=== PATIENT | female | born 1945 | race Caucasian/White ===

== ENCOUNTER 2017-04-06 19:43 | Inpatient (IN) ==
--- NOTE | 2017-04-06 20:11 | Emergency Department Note ---
START Narrative - START START: Nontoxic-appearing 71-year-old female that presents for evaluation of a left wrist injury status post fall just prior to arrival. The patient was attending a football game and was walking up a set of metal bleachers when she "got dizzy and fell". She complains of only left wrist pain from this fall. She states that she is unable to perform range of motion exercises from the left wrist. She states that she has "been getting dizzy a lot lately but it has not made me fall until tonight". She states that she has seen her primary care provider regarding this. She is scheduled for a "chemical stress test" however this is pending insurance authorization. She complains of shortness of breath upon exertion as well as intermittent substernal and left sided chest pain and pressure.
[2017-04-06] MEDS ORDERED: 0.9 % Sodium Chloride 1,000 ML IVC ONE (20:29)
--- NOTE | 2017-04-06 21:02 | Emergency Department Note ---
Disposition Clinical Impression: Multiple falls, Hypokalemia Fracture of triquetrum of left wrist Qualifiers: Encounter type: initial encounter Fracture type: closed Fracture alignment: nondisplaced Qualified Code(s): S62.115A - Nondisplaced fracture of triquetrum [ cuneiform] bone, left wrist, initial encounter for closed fracture Chest pain Qualifiers: Chest pain type: unspecified Qualified Code(s): R07.9 - Chest pain, unspecified UTI (urinary tract infection) Qualifiers: Urinary tract infection type: acute cystitis Hematuria presence: without hematuria Qualified Code(s): N30.00 - Acute cystitis without hematuria Disposition: Admitted As Inpatient Condition: Fair Time of Disposition: 22:35 Fall HPI - General Chief Complaint: ED Extremity Injury, Upper Stated Complaint: left arm pain, fall Time Seen by Provider: 04/06/17 20:08 Source: patient, family Mode of arrival: ambulatory Limitations: no limitations Nursing Notes Reviewed: Yes Vital Signs Reviewed: Yes - History of Present Illness HPI Narrative: 71-year-old female history of hypothyroidism, presents after a possible mechanical fall she was exam of the [employer] and she slipped slipped and fell hitting her left hand was planted on the side of the wall she struck her head against the wall, and fell on the ground. She denies injuries elsewhere but now feels short of breath she had some intermittent dizziness, she states that she has had approximately 14 follows in the last few months and has not been seen by a physician. She was just seen by primary care physician to be evaluated for an outpatient stress test if his intermittent chest pain shortness of breath. She denies chest pain currently she had chest pain 5 out of 10 earlier today. Occurs at rest and with activity, she has taken baby aspirin, she denies neck pain chest pain or abdominal pain at this time. Pt Subjective Complaint: fall Fall From: standing Fall Witnessed: yes Place Fall Occurred: other (At [employer] game bleachers) Loss of Consciousness: unsure Prolonged Down Time?: no Symptoms Prior to Fall: none Context: tripped/slipped Location of injury: head Location of injury - extremities: Left: hand Severity: mild Severity scale (1-10): 4 Quality: aching Associated symptoms (after fall): Reports: headache, shortness of breath, lightheaded. Denies: neck pain, weakness, chest pain, abdominal pain, hematuria , unable to walk - Related Data Home Medications Medication Instructions Recorded Confirmed Ascorbic Acid [Vitamin C] 1,000 mg PO DAILY 09/05/16 04/06/17 Biotin 1 mg PO DAILY 09/05/16 04/06/17 Diphenoxylate/Atropine [Lomotil 1 each PO QID PRN 09/05/16 04/06/17 2.5 mg/0.025 mg] Gabapentin [Neurontin] 300 mg PO BID 09/05/16 04/06/17 HYDROcodone/Acet 10/325 mg [Concho 1 tab PO TID PRN 09/05/16 04/06/17 10-325 mg] L. Acidophilus/Pectin, [place] 1 each PO DAILY 09/05/16 04/06/17 [Acidophilus Capsule] Mv-Mn/FA/Vit K1/Lycop/Lut/Zeax 1 each PO DAILY 09/05/16 04/06/17 [Ocuvite Eye + Multi Tablet] Pantoprazole Sodium [Protonix] 40 mg PO BID 09/05/16 04/06/17 Potassium Chloride [K-Tab ER] 30 meq PO DAILY 09/05/16 04/06/17 Simvastatin [Zocor] 20 mg PO HS 09/05/16 04/06/17 Trazodone HCl 100 mg PO HS 09/05/16 04/06/17 Vitamin A 10,000 unit PO DAILY 09/05/16 04/06/17 Vitamin E 1,000 unit PO DAILY 09/05/16 04/06/17 hydroCHLOROthiazide 25 mg PO BID 09/05/16 04/06/17 [Hydrochlorothiazide] Aspirin Enteric Coated [Aspirin EC] 81 mg PO DAILY 04/06/17 04/06/17 Cyclobenzaprine [Flexeril] 10 mg PO BID PRN 04/06/17 04/06/17 PARoxetine HCl [Paroxetine HCl] 40 mg PO DAILY 04/06/17 04/06/17 SUMAtriptan Succinate [Imitrex] 100 mg PO Q2H PRN MDD 200 mg 04/06/17 04/06/17 Previous Rx's Medication Instructions Recorded Levothyroxine [Synthroid] 75 mcg PO 0630 #30 tablet 09/05/16 Allergies Allergy/AdvReac Type Severity Reaction Status Date / Time ampicillin Allergy Hives Verified 04/06/17 21:11 Sulfa (Sulfonamide AdvReac Gastrointestinal Verified 04/06/17 21:11 Antibiotics) Upset All systems ED: reviewed and negative except as stated. Review of Systems: As Per HPI Constitutional: Reports: weakness. Denies: fever, chills Eyes: Denies: eye pain ENT ED: Denies: ear pain Cardiovascular: Reports: dyspnea on exertion. Denies: chest pain, palpitations Respiratory: Denies: cough, dyspnea Gastrointestinal: Denies: abdominal pain, nausea, vomiting Genitourinary: Denies: urgency, dysuria Musculoskeletal: Reports: as per HPI, arthralgia. Denies: back pain, neck pain Integumentary: Denies: rash Neurological: Reports: as per HPI, headache Psychiatric: Denies: anxiety Endocrine: Reports: as per HPI, fatigue Hematological/Lymphatic: Denies: easy bleeding, easy bruising Fall PMH - Past Medical History Medical history: Reports: arthritis, fibromyalgia, hyperlipidemia Surgical history: Reports: cholecystectomy, hysterectomy, other Psychiatric history: Reports: depression - Social History Smoking Status: Never smoker Alcohol use: Reports: none Drug use: Reports: none Physical Exam Constitutional: NAD, pleasant elderly female in no acute distress vital signs reviewed and wnl Eyes: PERRLA, sclera anicteric ENT & Mouth: MM dry Neck: normal inspection, neck is supple Resp: CTA bilaterally, no resp distress CV: RRR, no m/g/r GI: normal inspection, soft, no guarding or rigidity Neuro: A&O3, CNII-XII grossly intact, WHITNEY Muscle skeletal: Area of tenderness and mild swelling to the left hand at the carpal bones, no snuffbox tenderness, no radial or ulnar tenderness or deformity. Vascularly intact distally Skin: on limited exam, skin intact with no rashes or lesions - General Limitations: no limitations General appearance: alert, in no apparent distress Course Course Narrative: 71-year-old female with mechanical versus syncopal fall, however given full falls recently, and what appears to be stable versus unstable anginal chest pain over the last few weeks, she does not shortness of breath this time with chest pain workup, left wrist was ordered at triage the most for pain is in the carpal bones, she is no snuffbox tenderness but do think that she will have indications for wrist splint regardless and possible admission for workup of chest pain shortness of breath, given age, hypertension and hyperlipidemia multiple falls. - Reevaluation(s) Reevaluation #1: Admitted to Dr Joyce for multiple falls, hypokalemia, intermittent chest pain, SOB, near syncope, UTI. Time: 22:36 Vital Signs Temperature 98.4 F 04/06/17 19:45 Pulse Rate 75 04/06/17 19:45 Respiratory Rate 18 04/06/17 19:45 Blood Pressure 0/0 04/06/17 19:45 O2 Sat by Pulse Oximetry 96 04/06/17 19:45 Temperature 98.4 F 04/06/17 19:45 Pulse Rate 64 04/06/17 22:17 Respiratory Rate 18 04/06/17 22:17 Blood Pressure 137/75 04/06/17 22:17 O2 Sat by Pulse Oximetry 96 04/06/17 22:17 Oxygen Delivery Oxygen Delivery Room Air Fall - Differential Diagnosis Likely: traumatic injury - Medical Records Medical records reviewed: Yes I reviewed the patient's medical records. - Lab Data Lab results reviewed: Yes I reviewed the patient's lab results. Result diagrams: 04/06/17 21:11 04/06/17 21:11 Lab Results 04/06/17 04/06/17 04/06/17 Range/Units 20:59 21:11 21:11 WBC 8.1 (4.3-11.1) K/mcL RBC 4.55 (3.82-4.97) M/mcL Hgb 13.8 (11.5-15.4) g/dL Hct 40.7 (35.3-44.9) % MCV 89.5 (83.0-100.0) fL MCH 30.3 (28.0-33.3) pg MCHC 33.9 (31.6-35.5) g/dL RDW 12.7 (11.5-14.5) % Plt Count 275 (140-400) K/mcL MPV 8.2 L (9.4-12.4) fL Immature Gran % 0.5 (0-4) % Seg Neutrophils % 53.4 % Lymphocytes % 34.8 % Monocytes % 8.4 % Eosinophils % 1.9 % Basophils % 1.0 % Neutrophils # 4.3 (1.6-8.9) K/mcL Lymphocytes # 2.8 (0.6-4.6) K/mcL Monocytes # 0.7 (0.0-1.3) K/mcL Eosinophils # 0.2 (0.0-0.6) K/mcL Basophils # 0.1 (0.0-0.2) K/mcL PT 10.6 (9.4-12.1) Seconds INR 1.0 Sodium (136-145) mEq/L Potassium (3.5-4.5) mEq/L Chloride (98-109) mEq/L Carbon Dioxide (19-29) mEq/L BUN (7-20) mg/dL Creatinine (0.57-1.11) mg/dL Est GFR ( Amer) (> 60) Est GFR (Non-Af Amer) (> 60) BUN/Creatinine Ratio (6-26) Glucose (70-99) mg/dL Calculated Osmolality (280-300) Lactic Acid (0.5-2.2) mmol/L Calcium (8.6-10.8) mg/dL Magnesium (1.6-2.6) mg/dL Troponin I (0-0.03) ng/mL B-Natriuretic Peptide (0-100) pg/mL TSH (0.350-4.840) mcIU/mL Urine Color Yellow (Yellow) Urine Clarity Cloudy A (Clear) Urine pH 6.5 (5.0-8.0) pH Units Ur Specific Bynum 1.026 H (1.010-1.025) Urine Protein Trace (Neg-Trace) mg/dL Urine Glucose (UA) Normal (Normal) mg/dL Urine Ketones Trace H (Negative) mg/dL Urine Blood Small H (Negative) Urine Nitrite Negative (Negative) Urine Bilirubin Negative (Negative) Urine Urobilinogen Normal (Normal) mg/dL Ur Leukocyte Esterase Large H (Negative) Urine Microscopic RBC 5-15 H (0-3) per hpf Urine Microscopic WBC TNTC H (0-3) per hpf Ur Squamous Epith Cells Moderate H (None-Few) per lpf Urine Bacteria Few (None-Few) per hpf Hyaline Casts None Seen (None-Few) per lpf Ur Culture Indicated? YES A (NO) 04/06/17 04/06/17 04/06/17 Range/Units 21:11 21:11 21:11 WBC (4.3-11.1) K/mcL RBC (3.82-4.97) M/mcL Hgb (11.5-15.4) g/dL Hct (35.3-44.9) % MCV (83.0-100.0) fL MCH (28.0-33.3) pg MCHC (31.6-35.5) g/dL RDW (11.5-14.5) % Plt Count (140-400) K/mcL MPV (9.4-12.4) fL Immature Gran % (0-4) % Seg Neutrophils % % Lymphocytes % % Monocytes % % Eosinophils % % Basophils % % Neutrophils # (1.6-8.9) K/mcL Lymphocytes # (0.6-4.6) K/mcL Monocytes # (0.0-1.3) K/mcL Eosinophils # (0.0-0.6) K/mcL Basophils # (0.0-0.2) K/mcL PT (9.4-12.1) Seconds INR Sodium 133 L (136-145) mEq/L Potassium 3.3 L (3.5-4.5) mEq/L Chloride 96 L (98-109) mEq/L Carbon Dioxide 26 (19-29) mEq/L BUN 14 (7-20) mg/dL Creatinine 0.81 (0.57-1.11) mg/dL Est GFR ( Amer) > 60 (> 60) Est GFR (Non-Af Amer) > 60 (> 60) BUN/Creatinine Ratio 17 (6-26) Glucose 103 H (70-99) mg/dL Calculated Osmolality 277 L (280-300) Lactic Acid (0.5-2.2) mmol/L Calcium 9.5 (8.6-10.8) mg/dL Magnesium 2.0 (1.6-2.6) mg/dL Troponin I 0.01 (0-0.03) ng/mL B-Natriuretic Peptide 26 (0-100) pg/mL TSH (0.350-4.840) mcIU/mL Urine Color (Yellow) Urine Clarity (Clear) Urine pH (5.0-8.0) pH Units Ur Specific Bynum (1.010-1.025) Urine Protein (Neg-Trace) mg/dL Urine Glucose (UA) (Normal) mg/dL Urine Ketones (Negative) mg/dL Urine Blood (Negative) Urine Nitrite (Negative) Urine Bilirubin (Negative) Urine Urobilinogen (Normal) mg/dL Ur Leukocyte Esterase (Negative) Urine Microscopic RBC (0-3) per hpf Urine Microscopic WBC (0-3) per hpf Ur Squamous Epith Cells (None-Few) per lpf Urine Bacteria (None-Few) per hpf Hyaline Casts (None-Few) per lpf Ur Culture Indicated? (NO) 04/06/17 04/06/17 Range/Units 21:49 21:49 WBC (4.3-11.1) K/mcL RBC (3.82-4.97) M/mcL Hgb (11.5-15.4) g/dL Hct (35.3-44.9) % MCV (83.0-100.0) fL MCH (28.0-33.3) pg MCHC (31.6-35.5) g/dL RDW (11.5-14.5) % Plt Count (140-400) K/mcL MPV (9.4-12.4) fL Immature Gran % (0-4) % Seg Neutrophils % % Lymphocytes % % Monocytes % % Eosinophils % % Basophils % % Neutrophils # (1.6-8.9) K/mcL Lymphocytes # (0.6-4.6) K/mcL Monocytes # (0.0-1.3) K/mcL Eosinophils # (0.0-0.6) K/mcL Basophils # (0.0-0.2) K/mcL PT (9.4-12.1) Seconds INR Sodium (136-145) mEq/L Potassium (3.5-4.5) mEq/L Chloride (98-109) mEq/L Carbon Dioxide (19-29) mEq/L BUN (7-20) mg/dL Creatinine (0.57-1.11) mg/dL Est GFR ( Amer) (> 60) Est GFR (Non-Af Amer) (> 60) BUN/Creatinine Ratio (6-26) Glucose (70-99) mg/dL Calculated Osmolality (280-300) Lactic Acid 0.9 (0.5-2.2) mmol/L Calcium (8.6-10.8) mg/dL Magnesium (1.6-2.6) mg/dL Troponin I (0-0.03) ng/mL B-Natriuretic Peptide (0-100) pg/mL TSH 1.101 (0.350-4.840) mcIU/mL Urine Color (Yellow) Urine Clarity (Clear) Urine pH (5.0-8.0) pH Units Ur Specific Bynum (1.010-1.025) Urine Protein (Neg-Trace) mg/dL Urine Glucose (UA) (Normal) mg/dL Urine Ketones (Negative) mg/dL Urine Blood (Negative) Urine Nitrite (Negative) Urine Bilirubin (Negative) Urine Urobilinogen (Normal) mg/dL Ur Leukocyte Esterase (Negative) Urine Microscopic RBC (0-3) per hpf Urine Microscopic WBC (0-3) per hpf Ur Squamous Epith Cells (None-Few) per lpf Urine Bacteria (None-Few) per hpf Hyaline Casts (None-Few) per lpf Ur Culture Indicated? (NO) - Radiology Data Radiology results reviewed: Yes I reviewed the patient's radiology results. Chest X-Ray 04/06/17 20:08 IMPRESSION: Left basilar atelectasis. Otherwise no evidence of acute disease. D/ / Tylor Lima MD / Tylor Lmia MD Interpreting Provider: Tylor Lima MD Wrist X-Ray 04/06/17 20:09 IMPRESSION: Triquetrum avulsion fracture. D/ / Eliu Baez MD / Eliu Baez MD Interpreting Provider: Eliu Baez MD Chest X-Ray 04/06/17 20:08 IMPRESSION: Left basilar atelectasis. Otherwise no evidence of acute disease. D/ / Tylor Lima MD / Tylor Lima MD Interpreting Provider: Tylor Lima MD Wrist X-Ray 04/06/17 20:09 IMPRESSION: Triquetrum avulsion fracture. D/ / Eliu Baez MD / Eliu Baez MD Interpreting Provider: Eliu Baez MD Head CT 04/06/17 20:48 IMPRESSION: No acute intracranial abnormality. D/ / Tylor Lima MD / Tylor Lima MD Interpreting Provider: Tylor Lima MD - EKG Data EKG attestation: Yes I reviewed and interpreted this EKG. EKG shows normal: sinus rhythm Rate: normal (72 bpm NV 171 QRS and 9 QTC 4:[address] segment changes) ST segment depression in: v4, v5, v6 Interpretation: no acute changes, nonspecific ST-T wave changes - Core Measures AMI Core Measures Followed: No Measure Exclusions: contraindicated (head trauma) Attestation Statement - Attestation Attestation: I, Enrique Waller MD, personally evaluated this patient and discussed their management with the resident physician. I reviewed the resident's note and agree with the documented findings, medical decision making, and plan of care. 71-year-old female presents to the emergency department with complaint that she had an episode of losing her balance while walking and then became dizzy and fell. She fell onto her left side and complains of pain in the left wrist. She did not hit her head but denies any headache. No loss consciousness. She also complains of some intermittent substernal chest pains which she has been having recently. She describes the pain as a dull ache in the mid upper chest. Some diaphoresis with the episodes of pain. No nausea or vomiting. Some mild shortness of breath. She denies any prior cardiac history. Patient reportedly has been having multiple falls recently which is a new problem for her. On examination patient is a well-developed well-nourished well-appearing elderly female in no acute distress. She is alert and oriented 3. There is no cyanosis or diaphoresis. GCS is 15. Chest is nontender to palpation. Breath sounds clear and equal bilaterally. Heart regular rate and rhythm. Abdomen soft and nontender with normal bowel sounds. No gross focal neurological deficits. There is some mild swelling and tenderness palpation over the dorsum of the left wrist. X-ray shows a fracture of the triquetrum of the left wrist. EKG shows normal sinus rhythm and no acute changes. Chest x-ray negative. Lab reviewed. Troponin normal. She does have a UTI. The hospitalist, Dr. Joyce, was consulted and accepted admission of the patient.
[2017-04-06 21:07] LABS: Bilirubin,Urine Negative (Negative); Blood,Urine Small (Negative); Clarity,Urine Cloudy (Clear); Color,Urine Yellow (Yellow); Glucose,Urine (UA) Normal (Normal); Ketones,Urine Trace mg/dL (Negative); Leukocyte Esterase,Urine Large (Negative); Nitrite,Urine Negative (Negative); PH,Urine 6.5 pH Units (5.0-8.0); Protein,Urine Trace mg/dL (Neg-Trace); Specific Gravity,Urine 1.026 (1.010-1.025); Urobilinogen,Urine Normal (Normal)
[2017-04-06 21:10] LABS: Bacteria,Urine Few per hpf (None-Few); Hyaline Casts,Urine None Seen per lpf (None-Few); Squamous Epithelial Cell,Urine Moderate per lpf (None-Few); WBC,Urine TNTC per hpf (0-3)
[2017-04-06 21:25] LABS: Basophils # 0.1 K/mcL (0.0-0.2); Eosinophils # 0.2 K/mcL (0.0-0.6); Eosinophils % 1.9 %; Hematocrit 40.7 % (35.3-44.9); Hemoglobin 13.8 g/dL (11.5-15.4); Immature Granulocytes % 0.5 % (0-4); Lymphocytes # 2.8 K/mcL (0.6-4.6); Lymphocytes % 34.8 %; Mean Corpuscular HGB Conc 33.9 g/dL (31.6-35.5); Mean Corpuscular Hemoglobin 30.3 pg (28.0-33.3); Mean Corpuscular Volume 89.5 fL (83.0-100.0); Mean Platelet Volume 8.2 fL (9.4-12.4); Monocytes # 0.7 K/mcL (0.0-1.3); Monocytes % 8.4 %; Neutrophils # 4.3 K/mcL (1.6-8.9); Platelet Count 275 K/mcL (140-400); Red Blood Count 4.55 M/mcL (3.82-4.97); Red Cell Distribution Width 12.7 % (11.5-14.5); Segmented Neutrophils % 53.4 %
[2017-04-06 21:26] LABS: Prothrombin Time 10.6 Seconds (9.4-12.1)
[2017-04-06 21:33] LABS: BUN/Creatinine Ratio 17 (6-26); Blood Urea Nitrogen 14 mg/dL (7-20); Calcium 9.5 mg/dL (8.6-10.8); Carbon Dioxide 26 mEq/L (19-29); Chloride 96 mEq/L (98-109); Glucose 103 mg/dL (70-99); Osmolality,Calculated 277 (280-300); Potassium 3.3 mEq/L (3.5-4.5); Sodium 133 mEq/L (136-145); eGFR For African Americans > 60 (> 60); eGFR For Non-African Americans > 60 (> 60)
[2017-04-06] MEDS ORDERED: Aspirin 81 MG TAB.CHEW PO ONE (22:33)
[2017-04-06] MEDS ORDERED: *HR* HYDROcodone/Acet 7.5/325 mg TABLET PO ONE (22:47)
--- NOTE | 2017-04-07 00:12 | Internal Med History&Physical ---
<Waylon Macario - Last Filed: 04/07/17 02:20> Date of Encounter: 04/07/17 Time of Encounter: 00:09 Assessment and Plan (1) UTI (urinary tract infection) Current visit: Yes Status: Acute Grossly positive UTI Patient completed a 5 day course of Bactrim 1 week ago for a UTI and reports several episodes of UTI in the past 2 years Blood and Urine cultures pending Lactic acid negative Continue Rocephin 1g IV daily Qualifiers: Urinary tract infection type: acute cystitis Hematuria presence: without hematuria Qualified Code(s): N30.00 - Acute cystitis without hematuria (2) Fracture of triquetrum of left wrist Current visit: Yes Status: Acute No scaphoid tenderness Continue pain control Outpatient follow up PT/OT consulted Qualifiers: Encounter type: initial encounter Fracture type: closed Fracture alignment: nondisplaced Qualified Code(s): S62.115A - Nondisplaced fracture of triquetrum [cuneiform] bone, left wrist, initial encounter for closed fracture (3) Multiple falls Current visit: Yes Status: Acute CT brain reveals no acute intracranial abnormality. MRI brain pending Orthostatic vitals pending She states that she has seen her primary care provider regarding this. She is scheduled for a "chemical stress test" however this is pending insurance authorization. PT/OT consulted (4) Chest pain Current visit: Yes Status: Acute SOFIE score 3 (Age 71, ASA use in 7 days, HTN, HLD, and family h/o CAD) Telemetry monitoring Patient given ASA in ED, continue ASA daily Trend seral troponins She is scheduled for an outpatient "chemical stress test" however this is pending insurance authorization. Qualifiers: Chest pain type: unspecified Qualified Code(s): R07.9 - Chest pain, unspecified (5) HTN (hypertension) Current visit: Yes Status: Chronic Continue home meds Qualifiers: Hypertension type: essential hypertension Qualified Code(s): I10 - Essential (primary) hypertension (6) HLD (hyperlipidemia) Current visit: Yes Status: Chronic Continue home meds Qualifiers: Hyperlipidemia type: unspecified Qualified Code(s): E78.5 - Hyperlipidemia , unspecified (7) Hypothyroidism Current visit: Yes Status: Chronic Continue home meds Qualifiers: Hypothyroidism type: unspecified Qualified Code(s): E03.9 - Hypothyroidism , unspecified (8) Hypokalemia Current visit: Yes Status: Acute Supplement K Continue to monitor (9) Obesity (BMI 30-39.9) Current visit: Yes Status: Chronic Discuss diet and exercise (10) DVT prophylaxis Current visit: Yes Status: Acute Heparin subq TID Internal Medicine - H&P: HPI Chief complaint: Left wrist pain after fall Admitted From: Home Plans for Post Hospital Care: Home History of present illness: Ms. Dye is a 71 year old female with a PMH of HTN, HLD, hypothyroidism, diverticulosis, and remote cardiac dysrhythmia that presented from home c/o falling on her left wrist just prior to arrival. Patient reports feeling dizzy and falling as she was walking up bleachers at a ball game. Patient reports multiple falls during the past couple of months due to recurrent lightheaded feeling while walking with associated episodes of left sided chest pain that only last a few seconds, palpitations, SOB, and diaphoresis. She denies cardiac dysrythmias for the past 13 years and is scheduled for an outpatient nuclear stress test once approved by her insurance. Of note, patient completed a 5 day course of Bactrim 1 week ago for a UTI and reports several episodes of UTI in the past 2 years. Patient denies fever, chills, loss of consciousness, syncope, vision changes, numbness, tingling, N/V/D/C, dysuria, urinary frequency, urgency, hematuria, or leg edema. Past Med Surg Social Fam HX - Past Medical History Medical history: arthritis, hyperlipidemia, hypertension Psychiatric history: depression - Past Surgical History Surgical History: cholecystectomy, hysterectomy, other (3/4 of thyroid removed) - Social History Smoking Status: Never smoker Smokeless Tobacco Status: No Alcohol use: none Drug use: none Current living situation: Home, With Family - Family History Mother Hx Family Cardiac Disorders: Yes ([place]) Father Hx Family Cancer: Yes (Throat) Internal Medicine - H&P: Meds Ascorbic Acid [Vitamin C] 1,000 mg PO DAILY 09/05/16 [History] Biotin 1 mg PO DAILY 09/05/16 [History] Diphenoxylate/Atropine [Lomotil 2.5 mg/0.025 mg] 1 each PO QID PRN 09/05/16 [ History] Gabapentin [Neurontin] 300 mg PO BID 09/05/16 [History] HYDROcodone/Acet 10/325 mg [[place] 10-325 mg] 1 tab PO TID PRN 09/05/16 [History] L. Acidophilus/Pectin, [place] [Acidophilus Capsule] 1 each PO DAILY 09/05/16 [ History] Levothyroxine [Synthroid] 75 mcg PO 0630 #30 tablet 09/05/16 [Rx] Mv-Mn/FA/Vit K1/Lycop/Lut/Zeax [Ocuvite Eye + Multi Tablet] 1 each PO DAILY [History] Pantoprazole Sodium [Protonix] 40 mg PO BID 09/05/16 [History] Potassium Chloride [K-Tab ER] 30 meq PO DAILY 09/05/16 [History] Simvastatin [Zocor] 20 mg PO HS 09/05/16 [History] Trazodone HCl 100 mg PO HS 09/05/16 [History] Vitamin A 10,000 unit PO DAILY 09/05/16 [History] Vitamin E 1,000 unit PO DAILY 09/05/16 [History] hydroCHLOROthiazide [Hydrochlorothiazide] 25 mg PO BID 09/05/16 [History] Aspirin Enteric Coated [Aspirin EC] 81 mg PO DAILY 04/06/17 [History] Cyclobenzaprine [Flexeril] 10 mg PO BID PRN 04/06/17 [History] PARoxetine HCl [Paroxetine HCl] 40 mg PO DAILY 04/06/17 [History] SUMAtriptan Succinate [Imitrex] 100 mg PO Q2H PRN MDD 200 mg 04/06/17 [History] 3 Allergy/AdvReac Type Severity Reaction Status Date / Time ampicillin Allergy Hives Verified 04/06/17 21:11 Sulfa (Sulfonamide AdvReac Gastrointestinal Verified 04/06/17 21:11 Antibiotics) Upset All Systems PM: A 10-system review of systems was performed and is negative for pertinent findings except as documented above in the HPI. - Constitutional Constitutional: falls, no anorexia, no chills, no fatigue, no fever(s), no night sweats, no weakness, no weight gain, no weight loss - EENT Eyes: no change in vision Nose, mouth and throat: dry mouth, no nasal obstruction, no sore throat - Cardiovascular Cardiovascular ROS IM: chest pain, diaphoresis, edema, lightheadedness, palpitations, no irregular heart rhythm, no syncope - Respiratory Respiratory: dyspnea, no cough, no chest congestion - Gastrointestinal Gastrointestinal: constipation, no abdominal pain, no diarrhea, no nausea, no vomiting - Genitourinary Genitourinary: no dysuria, no hematuria, no urinary frequency, no urinary urgency - Musculoskeletal Musculoskeletal ROS IM: arthralgias, limited range of motion, myalgias, no back pain, no numbness, no tingling - Integumentary Integumentary IM: no erythema, no skin ulcer - Neurological Neurological ROS: dizziness, frequent falls, no abnormal gait, no abnormal movements, no confusion, no convulsions, no headache(s), no lack of coordination , no numbness, no tingling, no weakness, no other visual disturbances - Psychiatric Psychiatric: no anxiety, no depression - Endocrine Endocrine IM: no polydipsia, no polyphagia, no polyuria - Constitutional Vitals: Temp Pulse Resp BP Pulse Ox 98.4 F 64 18 137/75 96 04/06/17 19:45 04/06/17 22:17 04/06/17 22:17 04/06/17 22:17 04/06/17 22:17 General appearance: Present: cooperative, A&O X 3, pleasant, no acute distress, obese, answers questions appropriately - Head Head exam: Present: atraumatic, normal inspection, normocephalic - Eye Eye exam: Present: EOMI, PERRL - ENT ENT exam: Present: mucous membranes moist, normal oropharynx - Neck Neck exam general surgery: Present: normal inspection, supple. Absent: tenderness - Respiratory Respiratory exam: Present: CTAB. Absent: wheezes - Cardiovascular Cardiovascular exam: Present: RRR, +S1, +S2. Absent: irregular rhythm, tachycardia - GI/Abdominal GI/Abdominal exam: Present: normal bowel sounds, soft, tenderness (LLQ to deep palpation). Absent: distended, guarding - Extremities Exam Extremities exam: Present: joint swelling (Left hand splint in place, no scaphoid tenderness), warm. Absent: pedal edema - Back Exam Back exam: Present: normal inspection. Absent: CVA tenderness (L), CVA tenderness (R), paraspinal tenderness, tenderness, vertebral tenderness - Neurological Exam Neurological exam: Present: alert, oriented X3, no focal deficits, strengths equal and symetr throughout. Absent: altered, facial droop, speech deficit - Psychiatric Psychiatric exam: Present: normal affect, normal mood - Skin Skin exam: Present: dry, normal color, warm. Absent: pallor Internal Med - H&P Results - Labs CBC & Chem 7: 04/06/17 21:11 04/06/17 21:11 - EKG Data -: EKG Interpreted by Myself EKG shows normal: sinus rhythm (NSR, HR 72, WI 171, mild ST depression in leads V4, V5, V6), axis, intervals, QRS complexes, ST-T waves <Marcela Joyce - Last Filed: 04/07/17 06:15> Date of Encounter: 04/07/17 Internal Medicine - H&P: HPI History of present illness: Ms. Dye is a 71 year old female All Systems PM: A 10-system review of systems was performed and is negative for pertinent findings except as documented above in the HPI. - Constitutional Vitals: Temp Pulse Resp BP Pulse Ox 98.7 F 62 16 128/74 95 04/07/17 00:38 04/07/17 03:39 04/07/17 00:38 04/07/17 03:39 04/07/17 00:38 Internal Med - H&P Results - Labs CBC & Chem 7: 04/07/17 03:09 04/07/17 03:09 Labs: Short CBC 04/07/17 Range/Units 03:09 WBC 9.5 (4.3-11.1) K/mcL Hgb 12.6 (11.5-15.4) g/dL Hct 37.9 (35.3-44.9) % Plt Count 261 (140-400) K/mcL Neutrophils # 5.5 (1.6-8.9) K/mcL BMP 04/07/17 03:09 Sodium 134 L Potassium 3.0 L Chloride 99 Carbon Dioxide 27 BUN 11 Creatinine 0.73 Glucose 107 H Calcium 9.0 Cardiac Enzymes 04/07/17 Range/Units 03:09 Troponin I 0.00 (0-0.03) ng/mL - Attending Attestation I have independently and personally seen the patient and examined the patient and discussed the plan with the resident. Patient has come in with a fall due to which she sustained a left wrist fracture. She is also complaining of chest pain which has resolved now. According to patient the last 6 months she becomes dizzy or lightheaded when she stands up or walk to the bathroom. By this description it appears she may have vasovagal phenomena. She uses hydrochlorothiazide. She denies any other symptoms. Her physical examination is quite unremarkable. We check her orthostatics and they are unremarkable. Her lab work showed reasonably normal sodium but serum hypo-osmolality and elevated urine specific gravity in the range of 1.028. I have ordered an MRI of the brain echocardiogram and ultrasound of the carotids beside TSH. I will also order CT chest with contrast considering her serum hypo-osmolality and hypoosmolar urine via indirect evidence. I will stop her hydrochlorothiazide at this time which she takes mainly because of leg edema. She might need cardiology evaluation. For her chest pain we will order a stress test as she was planned by her family doctor to get it done anyways.
[2017-04-07] MEDS ORDERED: Naloxone 0.4 MG/ML INJ IVP PRN (00:14)
[2017-04-07] MEDS ORDERED: Ondansetron 4 MG/2 ML VIAL IVP PRN (00:15)
[2017-04-07] MEDS ORDERED: Acetaminophen 325 MG TABLET PO PRN (00:15)
[2017-04-07] MEDS ORDERED: SUMAtriptan succinate 50 MG TABLET PO PRN (00:19)
[2017-04-07] MEDS ORDERED: Diphenoxylate/Atropine 1 TAB TABLET PO PRN (00:19)
[2017-04-07] MEDS: traZODone 50 MG TABLET PO SCH ×2 (02:31→20:31)
[2017-04-07] MEDS: *HR* HYDROcodone/Acet 10/325 mg TABLET PO PRN ×2 (03:20→09:03)
[2017-04-07 04:13] LABS: Basophils # 0.1 K/mcL (0.0-0.2); Basophils % 0.6 %; Eosinophils # 0.2 K/mcL (0.0-0.6); Eosinophils % 1.7 %; Hematocrit 37.9 % (35.3-44.9); Hemoglobin 12.6 g/dL (11.5-15.4); Immature Granulocytes % 0.4 % (0-4); Lymphocytes # 3.1 K/mcL (0.6-4.6); Lymphocytes % 32.6 %; Mean Corpuscular HGB Conc 33.2 g/dL (31.6-35.5); Mean Corpuscular Hemoglobin 29.6 pg (28.0-33.3); Mean Corpuscular Volume 89.2 fL (83.0-100.0); Mean Platelet Volume 8.3 fL (9.4-12.4); Monocytes # 0.7 K/mcL (0.0-1.3); Neutrophils # 5.5 K/mcL (1.6-8.9); Platelet Count 261 K/mcL (140-400); Red Blood Count 4.25 M/mcL (3.82-4.97); Red Cell Distribution Width 12.7 % (11.5-14.5); Segmented Neutrophils % 57.7 %
[2017-04-07 04:15] LABS: BUN/Creatinine Ratio 15 (6-26); Blood Urea Nitrogen 11 mg/dL (7-20); Carbon Dioxide 27 mEq/L (19-29); Chloride 99 mEq/L (98-109); Glucose 107 mg/dL (70-99); Osmolality,Calculated 278 (280-300); Sodium 134 mEq/L (136-145); eGFR For African Americans > 60 (> 60); eGFR For Non-African Americans > 60 (> 60)
[2017-04-07] MEDS ORDERED: Magnesium Sulfate 2 GM in D5% in Water 100 ML IVPB ONE (06:07)
[2017-04-07] MEDS ORDERED: Potassium Chloride 40 MEQ, Lidocaine 1% 2 ML in D5% in Water 500 ML IVPB ONE (06:07)
[2017-04-07] MEDS: *HR* Heparin 5,000 UNIT/ML VIAL SQ SCH ×3 (06:33→23:01)
[2017-04-07] MEDS: Famotidine 20 MG/2 ML VIAL IVP SCH ×2 (06:34→18:33)
[2017-04-07] MEDS ORDERED: Regadenoson 0.4 MG/5 ML SYRINGE IVP ONE (06:49)
[2017-04-07] MEDS: Ascorbic Acid 500 MG TABLET PO SCH (08:52)
[2017-04-07] MEDS: Aspirin Enteric Coated 81 MG Tablet PO SCH (08:52)
[2017-04-07] MEDS: hydroCHLOROthiazide 25 MG TABLET PO SCH ×2 (08:52→20:30)
[2017-04-07] MEDS: Gabapentin 300 MG CAPSULE PO SCH ×2 (08:53→20:30)
[2017-04-07] MEDS: Lactobacillus 1 EACH CAP.SPRINK PO SCH (08:53)
[2017-04-07] MEDS: Multivit/Ca/Min/Fe/FA 1 TAB TABLET PO SCH (08:53)
[2017-04-07] MEDS: (Biotin [Biotin] 1 MG) PO SCH (09:04)
[2017-04-07] MEDS: (Vitamin A [Vitamin A] 10,000 UNIT) PO SCH (09:04)
--- NOTE | 2017-04-07 11:35 | Internal Med Progress Note ---
Date of Encounter: 04/07/17 Time of Encounter: 09:15 - Assessment and plan (1) Fracture of triquetrum of left wrist Current Visit: Yes Status: Acute Assessment and plan: Patient with fracture left wrist last night while attempting to climb stairs on bleachers at a football game. Patient with frequent number of falls recently due to dizziness. Patient did report dizziness during this fall. Patient currently wearing an Orthoglass splint, Ryder. Brisk capillary refill to all fingers, normal range of motion to fingers. Continue pain medication and ice, elevate. Outpatient orthopedic follow-up. Wrist X-Ray 04/06/17 20:09 IMPRESSION: Triquetrum avulsion fracture. D/ / Eliu Baez MD / Eliu Baez MD Interpreting Provider: Eliu Baez MD Qualifiers: Encounter type: initial encounter Fracture type: closed Fracture alignment: nondisplaced Qualified Code(s): S62.115A - Nondisplaced fracture of triquetrum [cuneiform] bone, left wrist, initial encounter for closed fracture (2) Multiple falls Current Visit: Yes Status: Acute Assessment and plan: Daughter reports that patient has fallen approximately 14 times in the last couple of months. She states that most recently the patient fell in the bathroom and patient's had to pick her up from the floor due to weakness. She states that she becomes lightheaded prior to fall. She denies any loss of consciousness, nausea, vomiting, loss of bowel or bladder control. Head CT is negative for any acute intracranial abnormality. Brain MRI also negative for acute intracranial abnormality. There is minimal parenchymal volume loss and minimal chronic microvascular disease. Chest x-ray is negative for any acute disease. Orthostatic vital signs are negative. Patient is on fall precautions PT/OT consult Echocardiogram is completed, report not available at this time. Carotid Doppler ordered (3) Chest pain Current Visit: Yes Status: Acute Assessment and plan: Patient reports approximately two-month history of midsternal chest tightness with intermittent sharp, stabbing pain that radiates to under left breast. She reports is been increasing in frequency and duration and now states that she has the pain every single day 2-3 times a day with exertion. She states it lasts approximately 1 minute. She reports shortness of breath, diaphoresis, denies nausea or radiation of the pain to the back neck or jaw. Patient reports there is no relation to the chest pain with the falls that she has been having at home. She has been waiting for an outpatient stress test that has not been done yet due to need for prior authorization from insurance company. She will get aspirin in the emergency department. We will continue baby aspirin daily. Troponins were negative 3. Chest x-ray was negative. She was unable to have her stress test this morning due to the fact that she ate a candy bar overnight, states that she was unaware that she was nothing by mouth. Echo has been completed, results are pending. Stress test in the morning, nothing by mouth after midnight Continue telemetry Continue aspirin and statin Lipid panel and A1c ordered for morning Nitroglycerin and morphine for chest pain. Qualifiers: Chest pain type: unspecified Qualified Code(s): R07.9 - Chest pain, unspecified (4) UTI (urinary tract infection) Current Visit: Yes Status: Acute Assessment and plan: Patient found to have a urinary tract infection on admission. She denies any urinary symptoms. Most likely one of the factors in her recent falls and weakness, as well as physical deconditioning. Abdomen is soft and nontender, bowel sounds present. There is no CVA tenderness. She denies any stephy hematuria. She denies fever, chills, nausea, vomiting. Urine cloudy with small amount of blood, large amount of leukocyte esterase and 5-15 microscopic RBCs, too numerous to count microscopic white cells, few bacteria. Culture is indicated and pending. Rocephin 1 g IV daily Culture is pending. Watch for final and sensitivity, change antibiotics as necessary. Qualifiers: Urinary tract infection type: acute cystitis Hematuria presence: without hematuria Qualified Code(s): N30.00 - Acute cystitis without hematuria (5) Hypokalemia Current Visit: Yes Status: Acute Assessment and plan: Potassium 3.0 today, decreased from yesterday after supplementation. Patient takes hydrochlorothiazide 25 mg twice daily. She also takes 30 mEq by mouth daily at home. She denies any nausea, vomiting, diarrhea. Patient received 40 mEq by mouth potassium chloride, as well as a 40 mEq K rider yesterday. Will start patient on 20 mEq by mouth twice a day here. Monitor labs in the a.m. Supplement as needed. (6) Hypothyroidism Current Visit: Yes Status: Chronic Assessment and plan: TSH is within normal limits. Continue home medications. Qualifiers: Hypothyroidism type: unspecified Qualified Code(s): E03.9 - Hypothyroidism , unspecified (7) HTN (hypertension) Current Visit: Yes Status: Chronic Assessment and plan: Chronic. Continue home medication. Blood pressures well controlled in the hospital. Orthostatics were negative. Qualifiers: Hypertension type: essential hypertension Qualified Code(s): I10 - Essential (primary) hypertension (8) HLD (hyperlipidemia) Current Visit: Yes Status: Chronic Assessment and plan: Chronic. Continue statin. Lipid panel ordered for morning. Qualifiers: Hyperlipidemia type: unspecified Qualified Code(s): E78.5 - Hyperlipidemia , unspecified (9) DVT prophylaxis Current Visit: Yes Status: Acute Assessment and plan: Heparin subcutaneous daily. Up to chair twice a day. - Time Spent With Patient less than 15 minutes - Constitutional Vitals: Temp Pulse Resp BP Pulse Ox 97.7 F 65 16 143/76 97 04/07/17 11:20 04/07/17 11:20 04/07/17 11:20 04/07/17 11:20 04/07/17 11:20 General appearance: Present: cooperative, A&O X 3, pleasant, no acute distress, obese, answers questions appropriately - Head Head exam: Present: atraumatic, normal inspection, normocephalic - Eye Eye exam: Present: normal appearance, conjuntiva pink, sclera anicteric - Neck Neck exam general surgery: Present: supple, trachea midline. Absent: lymphadenopathy, tenderness - Respiratory Respiratory exam: Present: CTAB. Absent: accessory muscle use, chest wall tenderness, rales, respiratory distress, rhonchi, wheezes - Cardiovascular Cardiovascular exam: Present: RRR, +S1, +S2. Absent: diastolic murmur, gallop, rubs, systolic murmur - GI/Abdominal GI/Abdominal exam: Present: normal bowel sounds, soft, no peritoneal signs. Absent: distended, hepatomegaly, tenderness - Extremities Exam Extremities exam: Present: normal capillary refill, normal inspection, warm, radial pulses palpable and symmetrical. Absent: calf tenderness, cyanotic, pedal edema, tenderness - Neurological Exam Neurological exam: Present: alert, oriented X3, no focal deficits. Absent: motor sensory deficit, strengths equal and symetr throughout, facial droop, speech deficit - Skin Skin exam: Present: dry, intact, normal color, warm. Absent: rash Internal Medicine: Result - Labs CBC & Chem 7: 04/07/17 03:09 04/07/17 03:09 Labs: Short CBC 04/07/17 Range/Units 03:09 WBC 9.5 (4.3-11.1) K/mcL Hgb 12.6 (11.5-15.4) g/dL Hct 37.9 (35.3-44.9) % Plt Count 261 (140-400) K/mcL Neutrophils # 5.5 (1.6-8.9) K/mcL BMP 04/07/17 03:09 Sodium 134 L Potassium 3.0 L Chloride 99 Carbon Dioxide 27 BUN 11 Creatinine 0.73 Glucose 107 H Calcium 9.0 Cardiac Enzymes 04/07/17 04/07/17 Range/Units 03:09 08:51 Troponin I 0.00 0.01 (0-0.03) ng/mL - ABG Interpretation ABG results: PT/INR, D-dimer PT 10.6 Seconds (9.4-12.1) 04/06/17 21:11 - Impressions Impressions Brain MRI 04/07/17 02:19 IMPRESSION: No acute intracranial abnormality. Minimal parenchymal volume loss. Minimal chronic microvascular disease. D/ / Simon Valdivia MD / Simon Valdivia MD Interpreting Provider: Simon Valdivia MD Chest CT 04/07/17 06:16 IMPRESSION: Bibasilar atelectasis versus developing infiltrate, less likely. Fatty liver. D/ / 04/07/2017 08:58:47 Kaiden Hernández MD / bcarter Interpreting Provider: Kaiden Hernández MD Consult Discharge Plan - Plan Referrals: Merrick Esquivel MD [Primary Care Provider] -
[2017-04-07] MEDS: *HR* OxyCODONE/APAP 5/325 TABLET PO PRN ×2 (13:09→23:01)
[2017-04-07] MEDS ORDERED: methylPREDNISolone 250 MG in 0.9 % Sodium Chloride 50 ML IVPB ONE (16:55)
[2017-04-07] MEDS ORDERED: *HR* Morphine 2 MG/ML SYRINGE IVP PRN (20:05)
[2017-04-07] MEDS ORDERED: *HR* Morphine 2 MG/ML SYRINGE ONE (20:20)
[2017-04-07] MEDS ORDERED: Ketorolac 15 MG/ML VIAL IVP ONE (23:11)
[2017-04-08 05:30] LABS: Basophils % 0.3 %; Eosinophils # 0.1 K/mcL (0.0-0.6); Eosinophils % 0.6 %; Hematocrit 38.2 % (35.3-44.9); Immature Granulocytes % 0.3 % (0-4); Lymphocytes # 1.9 K/mcL (0.6-4.6); Mean Corpuscular Hemoglobin 30.2 pg (28.0-33.3); Mean Corpuscular Volume 88.8 fL (83.0-100.0); Mean Platelet Volume 8.3 fL (9.4-12.4); Monocytes # 0.9 K/mcL (0.0-1.3); Monocytes % 6.2 %; Neutrophils # 11.5 K/mcL (1.6-8.9); Platelet Count 293 K/mcL (140-400); Red Cell Distribution Width 12.8 % (11.5-14.5); Segmented Neutrophils % 79.6 %
[2017-04-08 05:35] LABS: Hemoglobin A1C 5.3 %
[2017-04-08 05:54] LABS: Alanine Aminotransferase 38 Units/L (0-55); Albumin 3.9 g/dL (3.5-5.0); Albumin/Globulin Ratio 1.2 (1.1-2.2); Alkaline Phosphatase 82 Units/L (38-126); Aspartate Amino Transferase 35 Units/L (5-34); BUN/Creatinine Ratio 12 (6-26); Bilirubin,Total 0.6 mg/dL (0.2-1.2); Blood Urea Nitrogen 9 mg/dL (7-20); Carbon Dioxide 26 mEq/L (19-29); Chloride 96 mEq/L (98-109); Globulin 3.2 g/dL (2.4-3.5); Glucose 127 mg/dL (70-99); Osmolality,Calculated 276 (280-300); Potassium 3.2 mEq/L (3.5-4.5); Sodium 133 mEq/L (136-145); Total Protein 7.1 g/dL (6.0-8.3); eGFR For African Americans > 60 (> 60); eGFR For Non-African Americans > 60 (> 60)
[2017-04-08 05:58] LABS: Chol/HDL Ratio 3.8 (0-4.9)
[2017-04-08] MEDS: Famotidine 20 MG/2 ML VIAL IVP SCH ×2 (06:13→17:10)
[2017-04-08] MEDS: *HR* Heparin 5,000 UNIT/ML VIAL SQ SCH ×3 (06:13→21:45)
[2017-04-08] MEDS ORDERED: Regadenoson 0.4 MG/5 ML SYRINGE IVP ONE (06:19)
[2017-04-08] MEDS: Ketorolac 15 MG/ML VIAL IVP PRN ×2 (06:55→13:18)
[2017-04-08] MEDS: Ascorbic Acid 500 MG TABLET PO SCH (10:18)
[2017-04-08] MEDS: Lactobacillus 1 EACH CAP.SPRINK PO SCH (10:18)
[2017-04-08] MEDS: (Vitamin A [Vitamin A] 10,000 UNIT) PO SCH (10:19)
[2017-04-08] MEDS: Aspirin Enteric Coated 81 MG Tablet PO SCH (10:19)
[2017-04-08] MEDS: (Biotin [Biotin] 1 MG) PO SCH (10:19)
[2017-04-08] MEDS: hydroCHLOROthiazide 25 MG TABLET PO SCH ×2 (10:19→21:45)
[2017-04-08] MEDS: Gabapentin 300 MG CAPSULE PO SCH ×2 (10:19→21:44)
[2017-04-08] MEDS: Multivit/Ca/Min/Fe/FA 1 TAB TABLET PO SCH (10:19)
--- NOTE | 2017-04-08 11:26 | Electrocardiograph Report ---
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
--- NOTE | 2017-04-08 11:41 | Internal Med Progress Note ---
Date of Encounter: 04/08/17 Time of Encounter: 10:30 - Assessment and plan (1) Fracture of triquetrum of left wrist Current Visit: Yes Status: Acute Assessment and plan: Patient with fracture left wrist while climbing stairs on bleachers at a football game. Patient with frequent number of falls recently due to dizziness , 14 in the last few weeks per daughter. Patient reported dizziness during this fall. Patient currently wearing an Orthoglass splint, Ryder. Brisk capillary refill to all fingers, normal range of motion to fingers. Continue pain medication and ice, elevate. Outpatient orthopedic follow-up. Wrist X-Ray 04/06/17 20:09 IMPRESSION: Triquetrum avulsion fracture. D/ / Eliu Baez MD / Eliu Baez MD Interpreting Provider: Eliu Baez MD Qualifiers: Encounter type: initial encounter Fracture type: closed Fracture alignment: nondisplaced Qualified Code(s): S62.115A - Nondisplaced fracture of triquetrum [cuneiform] bone, left wrist, initial encounter for closed fracture (2) Multiple falls Current Visit: Yes Status: Acute Assessment and plan: Daughter reports that patient has fallen approximately 14 times in the last couple of months. She states that most recently the patient fell in the bathroom and patient's had to pick her up from the floor due to weakness. She states that she becomes lightheaded prior to fall. She denies any loss of consciousness, nausea, vomiting, loss of bowel or bladder control. Head CT is negative for any acute intracranial abnormality. Brain MRI also negative for acute intracranial abnormality. There is minimal parenchymal volume loss and minimal chronic microvascular disease. Chest x-ray is negative for any acute disease. Orthostatic vital signs are negative. Echo showed LVEF of 60-65% with normal LV systolic function, normal LV diastolic function, no significant valvular dysfunction and normal wall motion in all segments. Stress test was completed today, has not resulted. Unclear etiology for falls. Perhaps related to physical deconditioning and fatigue. She reports today that she has been fatigued for a couple of months. Above testing is within normal limits, labs and vital signs are within normal limits. Patient was seen by physical therapy and evaluated for need for rehabilitation. Patient is on fall precautions PT/OT consult Echocardiogram is completed, report not available at this time. Carotid Doppler ordered (3) Chest pain Current Visit: Yes Status: Acute Assessment and plan: Patient reports approximately two-month history of midsternal chest tightness with intermittent sharp, stabbing pain that radiates to under left breast. She reports is been increasing in frequency and duration and now states that she has the pain every single day 2-3 times a day with exertion. She states it lasts approximately 1 minute. She reports shortness of breath, diaphoresis, denies nausea or radiation of the pain to the back neck or jaw. Patient reports there is no relation to the chest pain with the falls that she has been having at home. She had been waiting for an outpatient stress test that has not been done yet due to need for prior authorization from insurance company, however, we ordered it to be done while she was in the hospital. We will continue baby aspirin daily. Troponins were negative 3. Chest x-ray was negative. Echocardiogram with preserved EFsystolic or diastolic function of the LV, no significant valvular dysfunction. Stress test was completed today , results are pending. Patient denies chest pain today. Continue telemetry Continue aspirin and statin Lipid panel and A1c ordered for morning Nitroglycerin and morphine for chest pain. Qualifiers: Chest pain type: unspecified Qualified Code(s): R07.9 - Chest pain, unspecified (4) UTI (urinary tract infection) Current Visit: Yes Status: Acute Assessment and plan: Patient found to have a urinary tract infection on admission. She denies any urinary symptoms. Most likely one of the factors in her recent falls and weakness, as well as physical deconditioning. Abdomen is soft and nontender, bowel sounds present. There is no CVA tenderness. She denies any stephy hematuria. She denies fever, chills, nausea, vomiting. Urine cloudy with small amount of blood, large amount of leukocyte esterase and 5-15 microscopic RBCs, too numerous to count microscopic white cells, few bacteria. Preliminary culture shows gram-negative rods. We will continue Rocephin and wait on final culture and sensitivity. Rocephin 1 g IV daily Culture is pending. Watch for final and sensitivity, change antibiotics as necessary. Qualifiers: Urinary tract infection type: acute cystitis Hematuria presence: without hematuria Qualified Code(s): N30.00 - Acute cystitis without hematuria (5) Hypokalemia Current Visit: Yes Status: Acute Assessment and plan: Pt takes 30 mEq by mouth daily at home. She denies any nausea, vomiting, diarrhea. Patient received 40 mEq by mouth potassium chloride, as well as a 40 mEq K rider yesterday. She has been getting KCl- 20meq bid here. Monitor labs in the a.m. Supplement as needed. (6) Hypothyroidism Current Visit: Yes Status: Chronic Assessment and plan: TSH is within normal limits. Continue home medications. Follow up with PCP for continued monitoring. Qualifiers: Hypothyroidism type: unspecified Qualified Code(s): E03.9 - Hypothyroidism , unspecified (7) HTN (hypertension) Current Visit: Yes Status: Chronic Assessment and plan: Chronic. Continue home medication. Blood pressures well controlled in the hospital. Orthostatics were negative. Continue to monitor VS. Qualifiers: Hypertension type: essential hypertension Qualified Code(s): I10 - Essential (primary) hypertension (8) HLD (hyperlipidemia) Current Visit: Yes Status: Chronic Assessment and plan: Chronic. Continue statin. Cholersterol mildly elevated, continue Zocor. Qualifiers: Hyperlipidemia type: unspecified Qualified Code(s): E78.5 - Hyperlipidemia , unspecified (9) DVT prophylaxis Current Visit: Yes Status: Acute Assessment and plan: Heparin subcutaneous daily. Up to chair twice a day. - Time Spent With Patient less than 15 minutes - Subjective Interval history: Pt was seen and assessed at 1030, family x 2 at bs, all questions answered. Pt states that she feels better today; overall appearance and demeanor appear to be improved today. Pt has returned from stress test, results pending. Patient reports greater pain relief with Toradol then with narcotic pain occasions. Will judiciously use NSAIDs for pain control. - Constitutional Vitals: Temp Pulse Resp BP Pulse Ox 98.3 F 78 16 126/78 92 04/08/17 08:32 04/08/17 08:32 04/08/17 08:32 04/08/17 08:32 04/08/17 08:32 General appearance: Present: cooperative, A&O X 3, pleasant, no acute distress, obese, answers questions appropriately - Head Head exam: Present: atraumatic, normal inspection, normocephalic - Eye Eye exam: Present: normal appearance, conjuntiva pink, sclera anicteric - Neck Neck exam general surgery: Present: supple, trachea midline. Absent: lymphadenopathy, tenderness - Respiratory Respiratory exam: Present: CTAB. Absent: accessory muscle use, chest wall tenderness, rales, respiratory distress, rhonchi, wheezes - Cardiovascular Cardiovascular exam: Present: RRR, +S1, +S2. Absent: diastolic murmur, gallop, rubs, systolic murmur - GI/Abdominal GI/Abdominal exam: Present: normal bowel sounds, soft. Absent: distended, hepatomegaly, tenderness - Extremities Exam Extremities exam: Present: normal capillary refill, normal inspection, warm, radial pulses palpable and symmetrical. Absent: calf tenderness, cyanotic, pedal edema, tenderness - Neurological Exam Neurological exam: Present: alert, oriented X3, no focal deficits, strengths equal and symetr throughout. Absent: altered, facial droop, speech deficit - Skin Skin exam: Present: dry, intact, normal color, warm. Absent: rash Internal Medicine: Result - Labs CBC & Chem 7: 04/08/17 03:19 04/08/17 03:19 Labs: Short CBC 04/08/17 Range/Units 03:19 WBC 14.4 H D (4.3-11.1) K/mcL Hgb 13.0 (11.5-15.4) g/dL Hct 38.2 (35.3-44.9) % Plt Count 293 (140-400) K/mcL Neutrophils # 11.5 H (1.6-8.9) K/mcL BMP 04/08/17 03:19 Sodium 133 L Potassium 3.2 L Chloride 96 L Carbon Dioxide 26 BUN 9 Creatinine 0.76 Glucose 127 H Calcium 9.0 Cardiac Enzymes 04/07/17 Range/Units 15:00 Troponin I 0.00 (0-0.03) ng/mL Liver Function 04/08/17 Range/Units 03:19 Total Bilirubin 0.6 (0.2-1.2) mg/dL AST 35 H (5-34) Units/L ALT 38 (0-55) Units/L Alkaline Phosphatase 82 (38-126) Units/L Albumin 3.9 (3.5-5.0) g/dL - ABG Interpretation ABG results: PT/INR, D-dimer PT 10.6 Seconds (9.4-12.1) 04/06/17 21:11 - Impressions Impressions Wrist X-Ray 04/08/17 01:50 IMPRESSION: Grossly stable appearance of the triquetrum fracture. There is overlying soft tissue swelling. D/ / Chip Shepard MD / Chip Shepard MD Interpreting Provider: Chip Shepard MD Consult Discharge Plan - Plan Referrals: Merrick Esquivel MD [Primary Care Provider] -
[2017-04-08] MEDS: *HR* OxyCODONE/APAP 5/325 TABLET PO PRN (17:10)
[2017-04-08] MEDS: traZODone 50 MG TABLET PO SCH (21:45)
[2017-04-09] MEDS: Ketorolac 15 MG/ML VIAL IVP PRN ×2 (00:43→11:52)
[2017-04-09 04:30] LABS: Basophils % 0.4 %; Eosinophils # 0.2 K/mcL (0.0-0.6); Eosinophils % 1.7 %; Hematocrit 37.5 % (35.3-44.9); Hemoglobin 12.8 g/dL (11.5-15.4); Immature Granulocytes % 0.4 % (0-4); Lymphocytes # 3.1 K/mcL (0.6-4.6); Lymphocytes % 32.5 %; Mean Corpuscular HGB Conc 34.1 g/dL (31.6-35.5); Mean Corpuscular Hemoglobin 30.1 pg (28.0-33.3); Mean Corpuscular Volume 88.2 fL (83.0-100.0); Mean Platelet Volume 8.2 fL (9.4-12.4); Monocytes # 0.6 K/mcL (0.0-1.3); Monocytes % 6.7 %; Neutrophils # 5.6 K/mcL (1.6-8.9); Platelet Count 276 K/mcL (140-400); Red Blood Count 4.25 M/mcL (3.82-4.97); Red Cell Distribution Width 12.7 % (11.5-14.5); Segmented Neutrophils % 58.3 %
[2017-04-09 04:49] LABS: Alanine Aminotransferase 32 Units/L (0-55); Albumin 3.6 g/dL (3.5-5.0); Albumin/Globulin Ratio 1.1 (1.1-2.2); Alkaline Phosphatase 82 Units/L (38-126); Aspartate Amino Transferase 25 Units/L (5-34); BUN/Creatinine Ratio 11 (6-26); Bilirubin,Total 0.6 mg/dL (0.2-1.2); Blood Urea Nitrogen 8 mg/dL (7-20); Calcium 9.4 mg/dL (8.6-10.8); Carbon Dioxide 28 mEq/L (19-29); Chloride 94 mEq/L (98-109); Globulin 3.4 g/dL (2.4-3.5); Glucose 111 mg/dL (70-99); Osmolality,Calculated 271 (280-300); Potassium 3.2 mEq/L (3.5-4.5); Sodium 131 mEq/L (136-145); eGFR For African Americans > 60 (> 60); eGFR For Non-African Americans > 60 (> 60)
[2017-04-09] MEDS: Famotidine 20 MG/2 ML VIAL IVP SCH (05:56)
[2017-04-09] MEDS: *HR* Heparin 5,000 UNIT/ML VIAL SQ SCH ×2 (05:56→13:42)
[2017-04-09] MEDS ORDERED: Levofloxacin 750 MG/150 ML 750 MG/150 ML BAG IVPB SCH (09:00)
[2017-04-09] MEDS: hydroCHLOROthiazide 25 MG TABLET PO SCH (09:29)
[2017-04-09] MEDS: Multivit/Ca/Min/Fe/FA 1 TAB TABLET PO SCH (09:29)
[2017-04-09] MEDS: Lactobacillus 1 EACH CAP.SPRINK PO SCH (09:29)
[2017-04-09] MEDS: Ascorbic Acid 500 MG TABLET PO SCH (09:29)
[2017-04-09] MEDS: Gabapentin 300 MG CAPSULE PO SCH (09:29)
[2017-04-09] MEDS: Aspirin Enteric Coated 81 MG Tablet PO SCH (09:29)
[2017-04-09] MEDS: (Biotin [Biotin] 1 MG) PO SCH (09:29)
[2017-04-09] MEDS: (Vitamin A [Vitamin A] 10,000 UNIT) PO SCH (09:30)
[2017-04-09] MEDS: *HR* OxyCODONE/APAP 5/325 TABLET PO PRN ×2 (09:56→17:07)
[2017-04-09 15:15] VITALS: BP 127/71
--- NOTE | 2017-04-09 15:27 | Discharge Summary ---
Date of Encounter: 04/09/17 Time of Encounter: 08:50 - Discharge Diagnosis (1) Fracture of triquetrum of left wrist Priority: Primary Status: Acute Comments: Assessment and plan: Patient with fracture left wrist while climbing stairs on bleachers at a football game. Patient with frequent number of falls recently due to dizziness , 14 in the last few weeks per daughter. Patient reported dizziness during this fall. Patient currently wearing an Orthoglass splint, Ryder. Brisk capillary refill to all fingers, normal range of motion to fingers. Continue pain medication and ice, elevate. Outpatient orthopedic follow-up, primary RN scheduling. Pt will be given rx for pain medication for home. Wrist X-Ray 04/06/17 20:09 IMPRESSION: Triquetrum avulsion fracture. D/ / Eliu Baez MD / Eliu Baez MD Interpreting Provider: Eliu Baez MD Qualifiers: Encounter type: initial encounter Fracture type: closed Fracture alignment: nondisplaced Qualified Code(s): S62.115A - Nondisplaced fracture of triquetrum [cuneiform] bone, left wrist, initial encounter for closed fracture (2) Multiple falls Priority: Secondary Status: Acute Comments: Daughter reports that patient has fallen approximately 14 times in the last couple of months. She states that most recently the patient fell in the bathroom and patient's had to pick her up from the floor due to weakness. She states that she becomes lightheaded prior to fall. She denies any loss of consciousness, nausea, vomiting, loss of bowel or bladder control. Head CT is negative for any acute intracranial abnormality. Brain MRI also negative for acute intracranial abnormality. There is minimal parenchymal volume loss and minimal chronic microvascular disease. Chest x-ray is negative for any acute disease. Orthostatic vital signs are negative. Bilateral carotids have nonstenotic plaque. Echo showed LVEF of 60-65% with normal LV systolic function, normal LV diastolic function, no significant valvular dysfunction and normal wall motion in all segments. Stress test was completed today, has not resulted. Unclear etiology for falls. Perhaps related to physical deconditioning and fatigue. She reports today that she has been fatigued for a couple of months. Above testing is within normal limits, labs and vital signs are within normal limits. Patient was seen by physical therapy and evaluated for need for rehabilitation. Physical therapy recommends that patient have outpatient PT services. I believe falls recently have been due to physical deconditioning and weakness from urinary tract infection. (3) Chest pain Priority: Secondary Status: Acute Comments: Patient reports approximately two-month history of midsternal chest tightness with intermittent sharp, stabbing pain that radiates to under left breast. She reports is been increasing in frequency and duration and now states that she has the pain every single day 2-3 times a day with exertion. She states it lasts approximately 1 minute. She reports shortness of breath, diaphoresis, denies nausea or radiation of the pain to the back neck or jaw. Patient reports there is no relation to the chest pain with the falls that she has been having at home. She had been waiting for an outpatient stress test that has not been done yet due to need for prior authorization from insurance company, however, we ordered it to be done while she was in the hospital. We will continue baby aspirin daily. Troponins were negative 3. Chest x-ray was negative. Echocardiogram with preserved EFsystolic or diastolic function of the LV, no significant valvular dysfunction. Stress test was completed today , results are pending. Patient denies chest pain today, carotids are negative. The pain is not reproducible. And she has not had any chest pain since arrival. Unclear etiology of chest pain other than perhaps deconditioning or anxiety. Qualifiers: Chest pain type: unspecified Qualified Code(s): R07.9 - Chest pain, unspecified (4) UTI (urinary tract infection) Priority: Secondary Status: Acute Comments: Patient found to have a urinary tract infection on admission. She denies any urinary symptoms. Most likely one of the factors in her recent falls and weakness, as well as physical deconditioning. Abdomen is soft and nontender, bowel sounds present. There is no CVA tenderness. She denies any stephy hematuria. She denies fever, chills, nausea, vomiting. Urine cloudy with small amount of blood, large amount of leukocyte esterase and 5-15 microscopic RBCs, too numerous to count microscopic white cells, few bacteria. Final culture showed Klebsiella, sensitivity includes Levaquin. Patient received 1 dose IV. She will continue by mouth doses at home. Qualifiers: Urinary tract infection type: acute cystitis Hematuria presence: without hematuria Qualified Code(s): N30.00 - Acute cystitis without hematuria (5) Hypokalemia Priority: Secondary Status: Acute Comments: Continue home dose of medication. K+ 3.2. (6) Hypothyroidism Priority: Secondary Status: Chronic Comments: TSH is within normal limits. Continue home medications. Follow-up with primary care for continued monitoring any medication changes that are needed. Qualifiers: Hypothyroidism type: unspecified Qualified Code(s): E03.9 - Hypothyroidism , unspecified (7) HTN (hypertension) Priority: Secondary Status: Chronic Comments: Chronic. Continue medication. Blood pressure has been well controlled while in the hospital setting. Orthostatics were negative. Qualifiers: Hypertension type: essential hypertension Qualified Code(s): I10 - Essential (primary) hypertension (8) HLD (hyperlipidemia) Priority: Secondary Status: Chronic Comments: Chronic. Continue statin. Patient's cholesterol is mildly elevated, continue Zocor. Qualifiers: Hyperlipidemia type: unspecified Qualified Code(s): E78.5 - Hyperlipidemia , unspecified (9) DVT prophylaxis Priority: Secondary Status: Acute Comments: Heparin subcutaneous daily. Up to chair twice a day. - Discharge Medications Home Medications: Ascorbic Acid [Vitamin C] 1,000 mg PO DAILY 09/05/16 [History] Biotin 1 mg PO DAILY 09/05/16 [History] Diphenoxylate/Atropine [Lomotil 2.5 mg/0.025 mg] 1 each PO QID PRN 09/05/16 [ History] Gabapentin [Neurontin] 300 mg PO BID 09/05/16 [History] HYDROcodone/Acet 10/325 mg [[place] 10-325 mg] 1 tab PO TID PRN 09/05/16 [History] L. Acidophilus/Pectin, [place] [Acidophilus Capsule] 1 each PO DAILY 09/05/16 [ History] Levothyroxine [Synthroid] 75 mcg PO 0630 #30 tablet 09/05/16 [Rx] Mv-Mn/FA/Vit K1/Lycop/Lut/Zeax [Ocuvite Eye + Multi Tablet] 1 each PO DAILY [History] Pantoprazole Sodium [Protonix] 40 mg PO BID 09/05/16 [History] Potassium Chloride [K-Tab ER] 30 meq PO DAILY 09/05/16 [History] Simvastatin [Zocor] 20 mg PO HS 09/05/16 [History] Trazodone HCl 100 mg PO HS 09/05/16 [History] Vitamin A 10,000 unit PO DAILY 09/05/16 [History] Vitamin E 1,000 unit PO DAILY 09/05/16 [History] hydroCHLOROthiazide [Hydrochlorothiazide] 25 mg PO BID 09/05/16 [History] Aspirin Enteric Coated [Aspirin EC] 81 mg PO DAILY 04/06/17 [History] Cyclobenzaprine [Flexeril] 10 mg PO BID PRN 04/06/17 [History] PARoxetine HCl [Paroxetine HCl] 40 mg PO DAILY 04/06/17 [History] SUMAtriptan Succinate [Imitrex] 100 mg PO Q2H PRN MDD 200 mg 04/06/17 [History] Allergies/Adverse Reactions: 3 Allergy/AdvReac Type Severity Reaction Status Date / Time ampicillin Allergy Hives Verified 04/06/17 21:11 Sulfa (Sulfonamide AdvReac Gastrointestinal Verified 04/06/17 21:11 Antibiotics) Upset Date of admission: 04/07/17 13:14 Primary care physician: Merrick Esquivel MD Discharging clinician: Tonia Armas Anticipated date of discharge: 04/09/17 - Patient Status Disposition: Home, Self-Care Condition: Good Functional capacity at discharge: independent ambulation Overall status at discharge: patient is progressing back to baseline - Discharge Instructions Follow Up With: Merrick Esquivel MD [Primary Care Provider] - Alcon Cespedes DO [Non-Partnered Physician] - Additional Instructions: Follow-up with your primary care provider. Either your family doctor or orthopedics will need to write your order for physical therapy. Keep your wrist wrapped, keep your splint dry, continue to ice and elevate your arm. Orthopedics will call you for an appointment. Return to the emergency department as needed for any other problems or concerns , or if symptoms return or worsen. Get up slowly from seated or lying position. Resume normal activities as tolerated. Continue your home medications. - Diet and Activity Activity: as per physical therapy Diet: advance to your usual diet Hospital course: Ms. Dye is a 71 year old female with a past medical history of hypothyroidism, hypertension, hyperlipidemia, thyroid goiter, and obesity. She presented to the emergency department after a fall at a football game. She is attempting to walk up the bleachers and fell. She does have a left wrist fracture. Daughter reports that patient has fallen at least 14 times at home. Patient reports that she is chronically weak and fatigued. Patient was evaluated by physical therapy, their suggestion is that she go home and do outpatient physical therapy. She will also be referred to orthopedics for the wrist fracture. According to home medication list. Patient takes [place] 10 mg at home. She will continue those at home, I will not prescribe new medication for the wrist fracture. Patient is also being treated for urinary tract infection, Klebsiella. She will be sent home with Levaquin 750 mg by mouth daily. All patient's imaging and testing has been negative. Labs are stable and within normal limits, vital signs are stable and within normal limits. Patient will need continued follow-up, not only with orthopedics, but also with primary care. Patient is ready for discharge. - Time Spent with Patient Total time spent providing and/or coordinating discharge services: Less than 30 minutes - Constitutional Vitals: Temp Pulse Resp BP Pulse Ox 98.5 F 89 16 127/71 97 04/09/17 15:13 04/09/17 15:13 04/09/17 15:13 04/09/17 15:13 04/09/17 15:13 General appearance: Present: cooperative, A&O X 3, pleasant, no acute distress, obese, answers questions appropriately - Head Head exam: Present: atraumatic, normal inspection, normocephalic - Eye Eye exam: Present: normal appearance, conjuntiva pink, sclera anicteric - Neck Neck exam general surgery: Present: supple, trachea midline. Absent: lymphadenopathy - Respiratory Respiratory exam: Present: CTAB. Absent: accessory muscle use, rales, rhonchi, wheezes, tachypnea - Cardiovascular Cardiovascular exam: Present: RRR, +S1, +S2. Absent: diastolic murmur, gallop, rubs, systolic murmur - GI/Abdominal GI/Abdominal exam: Present: normal bowel sounds, soft. Absent: distended, guarding, hepatomegaly, tenderness - Extremities Exam Extremities exam: Present: tenderness, warm, radial pulses palpable and symmetrical. Absent: calf tenderness, cyanotic, normal inspection, pedal edema - Neurological Exam Neurological exam: Present: alert, motor sensory deficit, oriented X3, no focal deficits. Absent: facial droop, speech deficit - Skin Skin exam: Present: dry, intact, normal color, warm. Absent: rash
--- NOTE | 2017-04-13 11:53 | Event Note ---
Date of Encounter: 04/13/17 Time of Encounter: 11:49 Patient was admitted to hospital on 04/06/17 for fall she sustained and was found to have a UTI. Culture was ordered and infection control report was available with culture and sensitivity post-discharge. Culture positive for Klebsiella pneumoniae. Patient was notified personally by phone on 04/13/17 regarding test results and order for levaquin (per C&S report) 500 mg once daily x7 days was called into [facility] per patient's request. Patient was again notified personally to inform her that her Rx had been called in.
== END 2017-04-09 18:28 | disposition home or self-care (01) | DRG 563 ==
LOC: EMEROO 19:43 → 3BNU 19:43
PROVIDERS: ADMIT Internal Medicine; ATTEND Registered Nurse

== ENCOUNTER 2017-10-25 19:41 | Observation (INO) ==
[2017-10-25] MEDS ORDERED: Isovue-370 500 ML INFUS..BTL IV ONE (20:08)
--- NOTE | 2017-10-25 20:15 | Emergency Department Note ---
Disposition Clinical Impression: Chest pain Qualifiers: Chest pain type: unspecified Qualified Code(s): R07.9 - Chest pain, unspecified Back pain Qualifiers: Back pain location: thoracic back pain Chronicity: chronic Back pain laterality : midline Qualified Code(s): M54.6 - Pain in thoracic spine Disposition: Admitted As Inpatient Condition: Fair Referrals: Merrick Esquivel MD [Primary Care Provider] - Forms: ED Satisfaction Letter Time of Disposition: 22:45 General Adult HPI - General Chief complaint: ED Chest Pain Stated complaint: chest pain/nausea Time Seen by Provider: 10/25/17 19:52 Source: patient Limitations: no limitations Nursing Notes Reviewed: Yes Vital Signs Reviewed: Yes - History of Present Illness HPI Narrative: Patient is a 72-year-old female that presents the emergency department with acute onset chest pain while she was at her granddaughter's graduation. She states that it is located in the center of her chest and radiates into her back near her shoulder blades. She states that the pain also runs up and down near her sternum. Patient states that the pain waxes and wanes but never completely goes away. Patient denies any shortness of breath but does state that she has had some associated nausea without any vomiting. Patient denies any pain in her legs or arms at this time. Patient does state that she has had previous cardiac issues of atrial fibrillation. Pain Scale: 8 - Related Data Home Medications Medication Instructions Recorded Confirmed Ascorbic Acid [Vitamin C] 1,000 mg PO DAILY 09/05/16 04/06/17 Biotin 1 mg PO DAILY 09/05/16 04/06/17 Diphenoxylate/Atropine [Lomotil 1 each PO QID PRN 09/05/16 04/06/17 2.5 mg/0.025 mg] Gabapentin [Neurontin] 300 mg PO BID 09/05/16 04/06/17 HYDROcodone/Acet 10/325 mg [[place] 1 tab PO TID PRN 09/05/16 04/06/17 10-325 mg] L. Acidophilus/Pectin, [place] 1 each PO DAILY 09/05/16 04/06/17 [Acidophilus Capsule] Mv-Mn/FA/Vit K1/Lycop/Lut/Zeax 1 each PO DAILY 09/05/16 04/06/17 [Ocuvite Eye + Multi Tablet] Potassium Chloride [K-Tab ER] 30 meq PO DAILY 09/05/16 04/06/17 Trazodone HCl 100 mg PO HS 09/05/16 04/06/17 Vitamin A 10,000 unit PO DAILY 09/05/16 04/06/17 Vitamin E 1,000 unit PO DAILY 09/05/16 04/06/17 hydroCHLOROthiazide 25 mg PO BID 09/05/16 04/06/17 [Hydrochlorothiazide] Aspirin Enteric Coated [Aspirin EC] 81 mg PO DAILY 04/06/17 04/06/17 Cyclobenzaprine [Flexeril] 10 mg PO BID PRN 04/06/17 04/06/17 PARoxetine HCl [Paroxetine HCl] 40 mg PO DAILY 04/06/17 04/06/17 SUMAtriptan Succinate [Imitrex] 100 mg PO Q2H PRN MDD 200 mg 04/06/17 04/06/17 Ranitidine HCl [Acid Circuit Designer] 150 mg PO BID 10/25/17 10/25/17 Simvastatin [Zocor] 40 mg PO HS 10/25/17 10/25/17 Previous Rx's Medication Instructions Recorded Levothyroxine [Synthroid] 75 mcg PO 0630 #30 tablet 09/05/16 Allergies Allergy/AdvReac Type Severity Reaction Status Date / Time ampicillin Allergy Hives Verified 04/06/17 21:11 Sulfa (Sulfonamide AdvReac Gastrointestinal Verified 04/06/17 21:11 Antibiotics) Upset All systems ED: reviewed and negative except as stated. Cardiovascular: Reports: chest pain Gastrointestinal: Reports: nausea. Denies: vomiting Musculoskeletal: Reports: back pain (chronic but new pain near her shoulder blades) Past Medical History - Past Medical History Medical history: Reports: arthritis, hyperlipidemia, hypertension Surgical history: Reports: cholecystectomy, hysterectomy, other Psychiatric history: Reports: depression - Social History Smoking Status: Never smoker Smokeless Tobacco Status: No Alcohol use: Reports: none Drug use: Reports: none Physical Exam - General Limitations: no limitations General appearance: alert, in no apparent distress - Head Head exam: atraumatic, normocephalic - Eye Eye exam: Present: normal appearance, EOMI - Neck Neck exam: Present: normal inspection, full ROM, trachea midline - Respiratory Respiratory exam: Present: normal lung sounds bilaterally. Absent: respiratory distress, wheezes - Cardiovascular Cardiovascular exam: Present: regular rate, normal rhythm, normal heart sounds, +S1, +S2 - Abdominal Exam Abdominal exam: Present: soft, Non-Tender, normal bowel sounds - Neurological Exam Neurological exam: Present: alert, oriented X3 - Psychiatric Psychiatric exam: Present: normal affect, normal mood - Skin Skin exam: Present: warm, dry, intact Course - Reevaluation(s) Reevaluation #1: After speaking with the patient she states that her chest pain is significantly better and only has mild intermittent chest pain. The patient did not need any further analgesics at this time. I informed the patient that she would likely need to be admitted to the hospital and the patient was in agreement with this. Time: 22:03 Reevaluation #2: I called and spoke with the hospitalist regarding this patient and they have accepted the patient to their service. The patient be admitted to the hospital this time for further evaluation and management of her chest pain. Time: 22:43 Vital Signs Temperature 98.6 F 10/25/17 19:47 Pulse Rate 82 10/25/17 19:47 Respiratory Rate 16 10/25/17 19:47 Blood Pressure 153/88 10/25/17 19:47 O2 Sat by Pulse Oximetry 96 10/25/17 19:47 Temperature 98.6 F 10/25/17 19:52 Pulse Rate 75 10/25/17 20:29 Respiratory Rate 18 10/25/17 20:29 Blood Pressure 138/103 10/25/17 20:29 O2 Sat by Pulse Oximetry 98 10/25/17 20:29 Oxygen Delivery Oxygen Delivery Room Air Medical Decision Making - [facility] Narrative Medical decision making narrative: Due to the patient presented with chest pain that is tearing in nature there is concern for possible aortic dissection or other cardiac related issues we will obtain a CBC, BMP, troponin chest x-ray and EKG. We will also obtain CTA of the chest and abdomen and pelvis to rule out possible dissection. The patient' s laboratory testing was unremarkable. Her troponin was negative. Chest x-ray did not show any acute cardiopulmonary process. EKG did not show any evidence of STEMI at this time. CTs were negative for acute dissection however there was possible evidence of esophagitis per radiology read so we will give the patient a GI cocktail here in the emergency department. Remainder the laboratory testing was unremarkable. Called and spoke to the hospital and accepted the patient to their service. The hospital but I spoke with was and he has accepted the patient their service. The patient be admitted to the hospital this time for further evaluation and management. - Medical Records Medical records reviewed: Yes I reviewed the patient's medical records. - Lab Data Lab results reviewed: Yes I reviewed the patient's lab results. Result diagrams: 10/25/17 20:08 10/25/17 20:08 Lab Results 10/25/17 10/25/17 10/25/17 Range/Units 20:08 20:08 20:08 WBC 8.9 (4.3-11.1) K/mcL RBC 4.91 (3.82-4.97) M/mcL Hgb 14.7 (11.5-15.4) g/dL Hct 42.8 (35.3-44.9) % MCV 87.2 (83.0-100.0) fL MCH 29.9 (28.0-33.3) pg MCHC 34.3 (31.6-35.5) g/dL RDW 12.5 (11.5-14.5) % Plt Count 320 (140-400) K/mcL MPV 8.1 L (9.4-12.4) fL Immature Gran % 0.3 (0-4) % Seg Neutrophils % 48.3 % Lymphocytes % 41.8 % Monocytes % 6.3 % Eosinophils % 2.5 % Basophils % 0.8 % Neutrophils # 4.3 (1.6-8.9) K/mcL Lymphocytes # 3.7 (0.6-4.6) K/mcL Monocytes # 0.6 (0.0-1.3) K/mcL Eosinophils # 0.2 (0.0-0.6) K/mcL Basophils # 0.1 (0.0-0.2) K/mcL PT 11.4 (9.4-12.1) Seconds INR 1.1 APTT 29.1 (26.0-36.0) Seconds Sodium 135 L (136-145) mEq/L Potassium 3.5 (3.5-5.1) mEq/L Chloride 97 L (98-107) mEq/L Carbon Dioxide 27 (23-29) mEq/L BUN 11 (8-23) mg/dL Creatinine 0.80 (0.60-1.20) mg/dL Est GFR ( Amer) > 60 (> 60) Est GFR (Non-Af Amer) > 60 (> 60) BUN/Creatinine Ratio 14 (6-26) Glucose 92 (70-105) mg/dL Calculated Osmolality 279 L (280-300) Calcium 9.8 (8.6-10.3) mg/dL Troponin I < 0.03 (< 0.04) ng/mL - Radiology Data Radiology results reviewed: Yes I reviewed the patient's radiology results. Chest X-Ray 10/25/17 19:49 IMPRESSION: Mild left basilar atelectasis versus scarring. D/ / Rl Bhardwaj MD / Rl Bhardwaj MD Interpreting Provider: Rl Bhardwaj MD Abdomen/Pelvis CTA 10/25/17 20:08 IMPRESSION: 1. No aortic dissection or other acute vascular abnormality in the chest, abdomen, or pelvis. 2. Suspected diffuse circumferential esophageal wall thickening with paraesophageal stranding in the lower mediastinum compatible with esophagitis. 3. Diffuse hepatic steatosis. 4. Status post cholecystectomy and hysterectomy. 5. 3.1 cm left adrenal nodule with coarse calcifications unchanged from 09/24/2015 likely representing remote hemorrhage or infection. 6. Colonic diverticulosis. D/ / Rl Bhardwaj MD / Rl Bhardwaj MD Interpreting Provider: Rl Bhardwaj MD Chest CTA 10/25/17 20:08 IMPRESSION: 1. No aortic dissection or other acute vascular abnormality in the chest, abdomen, or pelvis. 2. Suspected diffuse circumferential esophageal wall thickening with paraesophageal stranding in the lower mediastinum compatible with esophagitis. 3. Diffuse hepatic steatosis. 4. Status post cholecystectomy and hysterectomy. 5. 3.1 cm left adrenal nodule with coarse calcifications unchanged from 09/24/2015 likely representing remote hemorrhage or infection. 6. Colonic diverticulosis. D/ / Rl Bhardwaj MD / Rl Bhardwaj MD Interpreting Provider: Rl Bhardwaj MD - EKG Data EKG #1 EKG attestation: Yes I reviewed and interpreted this EKG. EKG results narrative: EKG shows a sinus rhythm at a rate of 80 bpm, WI interval of 167, QRS duration 97, QTC of 415. No evidence of STEMI on EKG. This is compared to previous EKG on 04/06/17 which showed a sinus rhythm at a rate of 72 bpm.
--- NOTE | 2017-10-25 20:19 | Emergency Department Note ---
Disposition Clinical Impression: Chest pain Qualifiers: Chest pain type: unspecified Qualified Code(s): R07.9 - Chest pain, unspecified Disposition: Still a Patient Forms: ED Satisfaction Letter General Adult HPI - General Chief complaint: ED Chest Pain Stated complaint: chest pain/nausea Time Seen by Provider: 10/25/17 19:52 Source: patient Limitations: no limitations - History of Present Illness Pain Scale: 8 - Related Data Home Medications Medication Instructions Recorded Confirmed Ascorbic Acid [Vitamin C] 1,000 mg PO DAILY 09/05/16 04/06/17 Biotin 1 mg PO DAILY 09/05/16 04/06/17 Diphenoxylate/Atropine [Lomotil 1 each PO QID PRN 09/05/16 04/06/17 2.5 mg/0.025 mg] Gabapentin [Neurontin] 300 mg PO BID 09/05/16 04/06/17 HYDROcodone/Acet 10/325 mg [[place] 1 tab PO TID PRN 09/05/16 04/06/17 10-325 mg] L. Acidophilus/Pectin, [place] 1 each PO DAILY 09/05/16 04/06/17 [Acidophilus Capsule] Mv-Mn/FA/Vit K1/Lycop/Lut/Zeax 1 each PO DAILY 09/05/16 04/06/17 [Ocuvite Eye + Multi Tablet] Pantoprazole Sodium [Protonix] 40 mg PO BID 09/05/16 04/06/17 Potassium Chloride [K-Tab ER] 30 meq PO DAILY 09/05/16 04/06/17 Simvastatin [Zocor] 20 mg PO HS 09/05/16 04/06/17 Trazodone HCl 100 mg PO HS 09/05/16 04/06/17 Vitamin A 10,000 unit PO DAILY 09/05/16 04/06/17 Vitamin E 1,000 unit PO DAILY 09/05/16 04/06/17 hydroCHLOROthiazide 25 mg PO BID 09/05/16 04/06/17 [Hydrochlorothiazide] Aspirin Enteric Coated [Aspirin EC] 81 mg PO DAILY 04/06/17 04/06/17 Cyclobenzaprine [Flexeril] 10 mg PO BID PRN 04/06/17 04/06/17 PARoxetine HCl [Paroxetine HCl] 40 mg PO DAILY 04/06/17 04/06/17 SUMAtriptan Succinate [Imitrex] 100 mg PO Q2H PRN MDD 200 mg 04/06/17 04/06/17 Previous Rx's Medication Instructions Recorded Levothyroxine [Synthroid] 75 mcg PO 0630 #30 tablet 09/05/16 Allergies Allergy/AdvReac Type Severity Reaction Status Date / Time ampicillin Allergy Hives Verified 04/06/17 21:11 Sulfa (Sulfonamide AdvReac Gastrointestinal Verified 04/06/17 21:11 Antibiotics) Upset Cardiovascular: Reports: chest pain Gastrointestinal: Reports: nausea. Denies: vomiting Musculoskeletal: Reports: back pain (chronic but new pain near her shoulder blades) Past Medical History - Past Medical History Medical history: Reports: arthritis, hyperlipidemia, hypertension Surgical history: Reports: cholecystectomy, hysterectomy, other Psychiatric history: Reports: depression - Social History Smoking Status: Never smoker Smokeless Tobacco Status: No Alcohol use: Reports: none Drug use: Reports: none Physical Exam - General Limitations: no limitations General appearance: alert, in no apparent distress Course - Reevaluation(s) Reevaluation #1: ATTESTATION NOTE I examined this patient and my medical decision-making was reviewed with the [employer]PA/Advanced Practice Nurse/Resident Physician. I agree with the documented findings, disposition and treatment plan as described except to the extent set forth below. ED attending note: Patient seen with emergency medicine resident Dr. Axel Jefferson. We independently evaluated the patient. We independently had face-to -face contact with the patient. Please see a copy of his note for details of the history and physical, evaluation, management and disposition of this emergency Department patient. Briefly: 72-year-old female history of dysrhythmia but that was many years ago presents with atraumatic Pretty chest pain going between her shoulder blades denies shortness of breath fevers chills nausea vomiting patient is slightly hypertensive with systolic 155 no pulse deficits noted in her upper extremities when compared. She is awake and alert GCS 15 nonfocal neurologically. EKG shows no acute ischemic changes patient is getting screening labs and CT angiogram of the aorta with runoff towards to evaluate for the possibility of aortic dissection. Provided 40 minutes critical care service for this patient with admission being anticipated. Disposition pending Time: 20:17 Vital Signs Temperature 98.6 F 10/25/17 19:47 Pulse Rate 82 10/25/17 19:47 Respiratory Rate 16 10/25/17 19:47 Blood Pressure 153/88 10/25/17 19:47 O2 Sat by Pulse Oximetry 96 10/25/17 19:47 Temperature 98.6 F 10/25/17 19:52 Pulse Rate 82 10/25/17 19:52 Respiratory Rate 16 10/25/17 19:52 Blood Pressure 153/88 10/25/17 19:52 O2 Sat by Pulse Oximetry 96 10/25/17 19:52 Oxygen Delivery Oxygen Delivery Room Air
[2017-10-25 20:22] LABS: Basophils # 0.1 K/mcL (0.0-0.2); Basophils % 0.8 %; Eosinophils # 0.2 K/mcL (0.0-0.6); Eosinophils % 2.5 %; Hematocrit 42.8 % (35.3-44.9); Hemoglobin 14.7 g/dL (11.5-15.4); Immature Granulocytes % 0.3 % (0-4); Lymphocytes # 3.7 K/mcL (0.6-4.6); Lymphocytes % 41.8 %; Mean Corpuscular HGB Conc 34.3 g/dL (31.6-35.5); Mean Corpuscular Hemoglobin 29.9 pg (28.0-33.3); Mean Corpuscular Volume 87.2 fL (83.0-100.0); Mean Platelet Volume 8.1 fL (9.4-12.4); Monocytes # 0.6 K/mcL (0.0-1.3); Monocytes % 6.3 %; Neutrophils # 4.3 K/mcL (1.6-8.9); Platelet Count 320 K/mcL (140-400); Red Blood Count 4.91 M/mcL (3.82-4.97); Red Cell Distribution Width 12.5 % (11.5-14.5); Segmented Neutrophils % 48.3 %
[2017-10-25 20:28] LABS: INR 1.1; Prothrombin Time 11.4 Seconds (9.4-12.1)
[2017-10-25 20:30] LABS: Activated Partial Thrombo Time 29.1 Seconds (26.0-36.0)
[2017-10-25] MEDS ORDERED: *HR* FentaNYL (PF) 100 MCG/2 ML VIAL IVP ONE (20:35)
[2017-10-25 20:38] LABS: BUN/Creatinine Ratio 14 (6-26); Blood Urea Nitrogen 11 mg/dL (8-23); Calcium 9.8 mg/dL (8.6-10.3); Carbon Dioxide 27 mEq/L (23-29); Chloride 97 mEq/L (98-107); Glucose 92 mg/dL (70-105); Osmolality,Calculated 279 (280-300); Potassium 3.5 mEq/L (3.5-5.1); Sodium 135 mEq/L (136-145); Troponin I < 0.03 ng/mL (< 0.04); eGFR For African Americans > 60 (> 60); eGFR For Non-African Americans > 60 (> 60)
[2017-10-25] MEDS ORDERED: GI Cocktail 40 ML EACH PO ONE (22:34)
[2017-10-26] MEDS: Nitroglycerin 0.4 MG TAB.SUBL SL PRN ×4 (01:13→05:19)
--- NOTE | 2017-10-26 01:22 | Internal Med History&Physical ---
Date of Encounter: 10/26/17 Time of Encounter: 01:10 Internal Medicine - H&P: HPI Chief complaint: chest pain Admitted From: Emergency Dept Plans for Post Hospital Care: Home History of present illness: Ms. Dye is a 72 year old female with HTN, HLD, hypothyroidism who present with chest pain. This was acute onset chest pain while she was at her granddaughter's graduation. Midsternal with radiation to her back near her shoulder blades. Comes and goes with no obvious alleviating or aggrevating factors. Patient states that the pain waxes and wanes but never completely goes away. Given fentanyl in the ED which helped the pain. On the floor had recurrence of similar chest pain and nitro given which helped a little only. Denies fever, chills, blurry vision, diaphoresis, nausea, vomiting, shortness of breath, abdominal pain, diarrhea, constipation, urinary symptoms, or neurological symptoms. In the ED work up was negative in terms of cardiac enzymes and EKG. CTA chest with nothing acute but showed findings suspecting esophagitis. Ther was a 3.1 cm left adrenal nodule that was stable. Stress test negative about 6 months ago. echo unremarkable in March 2017 Past Med Surg Social Fam HX - Past Medical History Medical history: arthritis, hyperlipidemia, hypertension Psychiatric history: depression - Past Surgical History Surgical History: cholecystectomy, hysterectomy, other - Social History Smoking Status: Never smoker Smokeless Tobacco Status: No Alcohol use: none Drug use: none - Family History Mother Living Status: Hx Family Cardiac Disorders: Yes ([place]) Father Living Status: Hx Family Cancer: Yes (Throat) Internal Medicine - H&P: Meds Ascorbic Acid [Vitamin C] 1,000 mg PO DAILY 09/05/16 [History] Biotin 1 mg PO DAILY 09/05/16 [History] Diphenoxylate/Atropine [Lomotil 2.5 mg/0.025 mg] 1 each PO QID PRN 09/05/16 [ History] Gabapentin [Neurontin] 300 mg PO BID 09/05/16 [History] HYDROcodone/Acet 10/325 mg [[place] 10-325 mg] 1 tab PO TID PRN 09/05/16 [History] L. Acidophilus/Pectin, [place] [Acidophilus Capsule] 1 each PO DAILY 09/05/16 [ History] Levothyroxine [Synthroid] 75 mcg PO 0630 #30 tablet 09/05/16 [Rx] Mv-Mn/FA/Vit K1/Lycop/Lut/Zeax [Ocuvite Eye + Multi Tablet] 1 each PO DAILY [History] Potassium Chloride [K-Tab ER] 30 meq PO DAILY 09/05/16 [History] Trazodone HCl 100 mg PO HS 09/05/16 [History] Vitamin A 10,000 unit PO DAILY 09/05/16 [History] Vitamin E 1,000 unit PO DAILY 09/05/16 [History] hydroCHLOROthiazide [Hydrochlorothiazide] 25 mg PO BID 09/05/16 [History] Aspirin Enteric Coated [Aspirin EC] 81 mg PO DAILY 04/06/17 [History] Cyclobenzaprine [Flexeril] 10 mg PO BID PRN 04/06/17 [History] PARoxetine HCl [Paroxetine HCl] 40 mg PO DAILY 04/06/17 [History] SUMAtriptan Succinate [Imitrex] 100 mg PO Q2H PRN MDD 200 mg 04/06/17 [History] Ranitidine HCl [Acid Public Opinion Survey Taker] 150 mg PO BID 10/25/17 [History] Simvastatin [Zocor] 40 mg PO HS 10/25/17 [History] 3 Allergy/AdvReac Type Severity Reaction Status Date / Time ampicillin Allergy Hives Verified 04/06/17 21:11 Sulfa (Sulfonamide AdvReac Gastrointestinal Verified 04/06/17 21:11 Antibiotics) Upset All Systems PM: A 10-system review of systems was performed and is negative for pertinent findings except as documented above in the HPI. Review of systems: All systems reviewed are negative except as mentioned above - Constitutional Vitals: Temp Pulse Resp BP Pulse Ox 98.2 F 79 16 137/79 97 10/26/17 00:16 10/26/17 00:16 10/26/17 00:16 10/26/17 01:05 10/26/17 00:16 Exam: GEN: NAD HEENT: AT, NC, No cyanosis, oral mucosa is moist, No JVD Lymphatics: No lymphadenoapthy Eyes: Extrocular muscles intact, anicteric CVS:RRR. S1, S2, No m/r/g RESP: CTAB ABD: Soft, NT, ND, +BS EXT: No edema, No rashes, 2+ DP NEURO: Nonfocal, CN II-XII intact, No focal motor or sensory deficits Psych: Cooperative, Not anxious or depressed Internal Med - H&P Results - Labs CBC & Chem 7: 10/25/17 20:08 10/25/17 20:08 - Assessment and plan (1) Chest pain Current Visit: Yes Status: Acute Assessment and plan: Admit to telemetry. I believe the symptoms are likely to be from GI etiology. She does have esophagitis seen on CTA of chest. We will start PPI. We will trend cardiac enzymes and order a stress test for the morning. If those are negative she can be discharged on PPI and recommended follow-up with PCP or GI. We will check A1c and lipid panel for completeness sake. Patient is on aspirin and statin. Qualifiers: Chest pain type: unspecified Qualified Code(s): R07.9 - Chest pain, unspecified (2) Esophagitis Current Visit: Yes Status: Acute Assessment and plan: As above. PPI and antiemetics. (3) Hypokalemia Current Visit: No Status: Acute Assessment and plan: We will replace. Labs in the morning. (4) HLD (hyperlipidemia) Current Visit: No Status: Chronic Assessment and plan: Continue statin Qualifiers: Hyperlipidemia type: unspecified Qualified Code(s): E78.5 - Hyperlipidemia , unspecified (5) HTN (hypertension) Current Visit: No Status: Chronic Assessment and plan: Resume home antihypertensives. Qualifiers: Hypertension type: essential hypertension Qualified Code(s): I10 - Essential (primary) hypertension (6) Hypothyroidism Current Visit: No Status: Chronic Assessment and plan: Continue Synthroid Qualifiers: Hypothyroidism type: unspecified Qualified Code(s): E03.9 - Hypothyroidism , unspecified (7) DVT prophylaxis Current Visit: No Status: Acute Assessment and plan: Heparin subcutaneous - Time Spent With Patient Total time spent is greater than 50% in coordination of care (as documented) at patient's floor/unit and/or counseling patient:
[2017-10-26] MEDS ORDERED: Pantoprazole 40 MG VIAL IVP ONE (01:24)
[2017-10-26] MEDS ORDERED: Acetaminophen 325 MG TABLET PO PRN (01:25)
[2017-10-26] MEDS ORDERED: Naloxone 0.4 MG/ML INJ IVP PRN (01:25)
[2017-10-26] MEDS ORDERED: Ondansetron 4 MG/2 ML VIAL IVP PRN (01:26)
[2017-10-26] MEDS ORDERED: Aspirin 325 MG TABLET PO ONE (02:10)
[2017-10-26 02:27] LABS: BUN/Creatinine Ratio 17 (6-26); Blood Urea Nitrogen 12 mg/dL (8-23); Calcium 9.4 mg/dL (8.6-10.3); Carbon Dioxide 27 mEq/L (23-29); Chloride 98 mEq/L (98-107); Chol/HDL Ratio 6.8 (0-4.9); Cholesterol 278 mg/dL (< 200); Glucose 120 mg/dL (70-105); HDL Cholesterol 41 mg/dL (40-59); LDL Cholesterol,Calculated 186 mg/dL (0-99); Osmolality,Calculated 283 (280-300); Sodium 136 mEq/L (136-145); Triglycerides 253 mg/dL (< 150); eGFR For African Americans > 60 (> 60); eGFR For Non-African Americans > 60 (> 60)
[2017-10-26] MEDS ORDERED: *HR* HYDROcodone/Acet 5/325 mg TABLET PO PRN (05:14)
[2017-10-26] MEDS: *HR* Heparin 5,000 UNIT/ML VIAL SQ SCH ×3 (05:37→20:58)
[2017-10-26] MEDS ORDERED: Famotidine 20 MG TABLET PO SCH (07:30)
[2017-10-26] MEDS: Aspirin Enteric Coated 81 MG Tablet PO SCH (08:10)
[2017-10-26] MEDS: Gabapentin 300 MG CAPSULE PO SCH ×2 (08:10→20:56)
[2017-10-26] MEDS: Multivit/Ca/Min/Fe/FA 1 TAB TABLET PO SCH (08:11)
[2017-10-26] MEDS: Ascorbic Acid 500 MG TABLET PO SCH (08:11)
[2017-10-26] MEDS ORDERED: Potassium Chloride 40 MEQ, Lidocaine 1% 2 ML in D5% in Water 500 ML IVPB ONE (08:38)
[2017-10-26 08:59] LABS: Estimated Average Glucose 131 mg/dl; Hemoglobin A1C 6.2 %
[2017-10-26] MEDS ORDERED: VITAMIN A 10000 UNIT PO SCH (09:00)
[2017-10-26] MEDS ORDERED: hydroCHLOROthiazide 25 MG TABLET PO SCH (09:00)
[2017-10-26] MEDS ORDERED: Biotin [Biotin] 1 MG PO SCH (09:00)
--- NOTE | 2017-10-26 11:31 | Internal Med Progress Note ---
<Doroteo Clayton - Last Filed: 10/26/17 14:20> Date of Encounter: 10/26/17 Time of Encounter: 11:27 - Assessment and plan (1) Chest pain Current Visit: Yes Status: Acute Assessment and plan: - Most likely secondary to GI etiology - Workup in the emergency room and on admission shows troponin negative 3, CTA showing esophagitis - Today canceled as patient had one 7 months ago - We will obtain GI consult and recommendations as above Qualifiers: Chest pain type: unspecified Qualified Code(s): R07.9 - Chest pain, unspecified (2) Hypokalemia Current Visit: Yes Status: Acute Assessment and plan: Potassium of 3.0 most recently, we will replenish Hold HCTZ (3) Hypothyroidism Current Visit: No Status: Chronic Assessment and plan: Continue Synthroid Qualifiers: Hypothyroidism type: unspecified Qualified Code(s): E03.9 - Hypothyroidism , unspecified (4) HTN (hypertension) Current Visit: Yes Status: Chronic Assessment and plan: Resume home antihypertensives. Qualifiers: Hypertension type: essential hypertension Qualified Code(s): I10 - Essential (primary) hypertension (5) HLD (hyperlipidemia) Current Visit: Yes Status: Chronic Assessment and plan: Continue statin Qualifiers: Hyperlipidemia type: unspecified Qualified Code(s): E78.5 - Hyperlipidemia , unspecified (6) DVT prophylaxis Current Visit: Yes Status: Acute Assessment and plan: Heparin subcutaneous (7) Esophagitis Current Visit: Yes Status: Acute Assessment and plan: - Known history of esophagitis with distal esophageal and peptic ulcers - Last EGD performed in [facility] approximately 4 years ago. Patient states that she had 1 distal esophageal ulcer and 3 gastric ulcers - Patient reports taking Zantac with good relief however symptoms have worsened over the last few days - GI has been consulted, appreciate recommendations - CTA emergency room showed no Dissection, positive esophageal wall thickening, hepatic steatosis, adrenal nodule, diverticulosis Plan - Continue PPI, add Carafate - Per GI, we will perform EGD tomorrow morning. Nothing by mouth at midnight - Further recommendations pending results - Time Spent With Patient Total time spent is greater than 50% in coordination of care (as documented) at patient's floor/unit and/or counseling patient: - Subjective Interval history: This note is not for billing purposes as patient was admitted after midnight. She was seen and examined at bedside this morning. She states that she is overall feeling a little better compared to admission. Still having epigastric abdominal pain. No complaints of nausea, vomiting, changes in BM. States pain was constant, non radiating, with no exacerbating or relieving factors. She believes it is her ulcers. She had EGD done 4 years ago at [place] and takes zantac daily. it has been present for weeks but was worse last evening. - Constitutional Vitals: Temp Pulse Resp BP Pulse Ox 98.1 F 63 14 127/70 93 10/26/17 06:48 10/26/17 06:48 10/26/17 06:48 10/26/17 06:48 10/26/17 08:43 Exam: Gen.: Vitals noted. No acute distress. AAOx3 HEENT: PERRL/EOMI, oropharynx clear, Normocephalic, atraumatic, MMM Cardiac: RRR, no murmur, +S1/S2 Pulmonary: CTA bilaterally, no wheezes, rales or rhonchi, equal chest expansion Abdomen: soft, moderately tender in epigastric region, BS noted, no guarding, no rebound. MSK: ROM intact, no joint swelling noted Extremities: no BLE edema, nontender calf, no cyanosis or clubbing. well healing lesion from biopsy. Neuro: A&Ox3, moves all extremities, no focal deficits Psych: Appropriate mood and behavior Internal Medicine: Result - Labs CBC & Chem 7: 10/25/17 20:08 10/26/17 01:49 Labs: BMP 10/26/17 01:49 Sodium 136 Potassium 3.0 L Chloride 98 Carbon Dioxide 27 BUN 12 Creatinine 0.69 Glucose 120 H Calcium 9.4 Cardiac Enzymes 10/26/17 10/26/17 Range/Units 01:49 07:38 Troponin I < 0.03 < 0.03 (< 0.04) ng/mL - ABG Interpretation ABG results: PT/INR, D-dimer PT 11.4 Seconds (9.4-12.1) 10/25/17 20:08 Consult Discharge Plan - Plan Referrals: Merrick Esquivel MD [Primary Care Provider] - <Masood Roy - Last Filed: 10/26/17 15:30> Date of Encounter: 10/26/17 - Assessment and plan (1) Chest pain Current Visit: Yes Status: Acute Qualifiers: Chest pain type: unspecified Qualified Code(s): R07.9 - Chest pain, unspecified (2) Hypokalemia Current Visit: Yes Status: Acute (3) Hypothyroidism Current Visit: No Status: Chronic Qualifiers: Hypothyroidism type: unspecified Qualified Code(s): E03.9 - Hypothyroidism , unspecified (4) DVT prophylaxis Current Visit: Yes Status: Acute (5) HTN (hypertension) Current Visit: Yes Status: Chronic Qualifiers: Hypertension type: essential hypertension Qualified Code(s): I10 - Essential (primary) hypertension (6) HLD (hyperlipidemia) Current Visit: Yes Status: Chronic Qualifiers: Hyperlipidemia type: unspecified Qualified Code(s): E78.5 - Hyperlipidemia , unspecified (7) Esophagitis Current Visit: Yes Status: Acute - Time Spent With Patient Total time spent is greater than 50% in coordination of care (as documented) at patient's floor/unit and/or counseling patient: - Constitutional Vitals: Temp Pulse Resp BP Pulse Ox 98.9 F 68 18 177/74 95 10/26/17 11:57 10/26/17 11:57 10/26/17 11:57 10/26/17 11:57 10/26/17 11:57 Internal Medicine: Result - Labs CBC & Chem 7: 10/25/17 20:08 10/26/17 01:49 Labs: BMP 10/26/17 01:49 Sodium 136 Potassium 3.0 L Chloride 98 Carbon Dioxide 27 BUN 12 Creatinine 0.69 Glucose 120 H Calcium 9.4 Cardiac Enzymes 10/26/17 10/26/17 Range/Units 01:49 07:38 Troponin I < 0.03 < 0.03 (< 0.04) ng/mL - ABG Interpretation ABG results: PT/INR, D-dimer PT 11.4 Seconds (9.4-12.1) 10/25/17 20:08 - Attending Attestation I examined this patient and my medical decision-making was reviewed with the Resident Physician on 10/26/17. I agree with the documented findings, disposition and treatment plan as described except to the extent set forth below. Ms Dye is currently in observation for chest pain felt related to GI issue (esophagitis). She remains moderate to high risk. Ms Dye was admitted early today for chest pain. CT shows esophagitis. Exam Alert Comfortable Plan GI eval EGD tomorrow. Agree with assessment and plan as above.
[2017-10-26] MEDS: Sucralfate 1 GM TABLET PO SCH ×3 (11:40→20:56)
[2017-10-26] MEDS ORDERED: Melatonin 3 MG TABLET PO PRN (14:52)
[2017-10-26] MEDS: Pantoprazole 40 MG VIAL IVP SCH (17:02)
[2017-10-26] MEDS ORDERED: traZODone 50 MG TABLET PO SCH (21:00)
[2017-10-27] MEDS: *HR* Heparin 5,000 UNIT/ML VIAL SQ SCH ×2 (05:26→14:43)
[2017-10-27] MEDS: Pantoprazole 40 MG VIAL IVP SCH (05:32)
--- NOTE | 2017-10-27 06:22 | Electrocardiograph Report ---
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
--- NOTE | 2017-10-27 06:33 | Electrocardiograph Report ---
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
[2017-10-27 07:17] LABS: BUN/Creatinine Ratio 15 (6-26); Blood Urea Nitrogen 10 mg/dL (8-23); Calcium 9.3 mg/dL (8.6-10.3); Carbon Dioxide 25 mEq/L (23-29); Chloride 98 mEq/L (98-107); Glucose 119 mg/dL (70-105); Osmolality,Calculated 278 (280-300); Sodium 134 mEq/L (136-145); eGFR For African Americans > 60 (> 60); eGFR For Non-African Americans > 60 (> 60)
[2017-10-27] MEDS ORDERED: *HR* Midazolam HCl 5 MG/5 ML VIAL IVP ONE ×2 (07:33→08:06)
[2017-10-27] MEDS ORDERED: *HR* FentaNYL (PF) 100 MCG/2 ML VIAL ONE (07:34)
[2017-10-27] MEDS ORDERED: 0.9 % Sodium Chloride 1,000 ML IVC SCH (08:00)
[2017-10-27] MEDS ORDERED: *HR* FentaNYL (PF) 100 MCG/2 ML VIAL IVP ONE (08:06)
[2017-10-27] MEDS ORDERED: Simethicone 40 MG/0.6 ML MLS IR ONE (08:06)
[2017-10-27] MEDS ORDERED: Tetracaine/Benzocaine/Butamben 200MG/SPRAY (100SPY/BOT) MM ONE (08:06)
--- NOTE | 2017-10-27 08:06 | Pre-Sedation Evaluation ---
Pre-sedation evaluation - Pre-sedation checklist Date of procedure: 10/27/17 Procedure: egd Recent Vitals: Last Vital Signs Temp 98.3 F 10/27/17 07:43 Pulse 71 10/27/17 07:43 Resp 16 10/27/17 07:43 BP 153/71 10/27/17 07:43 Pulse Ox 98 10/27/17 07:40 H&P (including ROS) documented in medical record: Yes Previous reaction to sedatives/anesthetics: No Dietary Status: NPO after Midnight Dentition: dentures removed ASA Classification *see protocol: CLASS III-Severe systemic disease Plan of Care: Pt appropriate candidate for procedure/moderate/conscious sedation , Risks/benefits of procedure/sedation discussed w/ patient/family
--- NOTE | 2017-10-27 08:39 | Gastroenterology Consult Note ---
Date of Encounter: 10/27/17 Time of Encounter: 08:00 - Assessment and plan (1) Epigastric abdominal pain Current Visit: Yes Status: Acute Assessment and plan: With CT of the chest showing possible esophagitis. Patient with previous history of gastric ulcer. Recommendation: Patient will have an EGD done today to rule out esophagitis peptic ulcer disease etc. - Time Spent With Patient Total time spent is greater than 50% in coordination of care (as documented) at patient's floor/unit and/or counseling patient: GI History of Present Illness - Data of Consult Requesting Physician: Masood Roy DO - Consult Narrative History of present illness: Ms. Dye is a 72 year old female we were asked to see because of epigastric pain that started 2 days prior to presentation. Per patient and and does radiate up and lower down. Denies any difficulty with swallowing. Denied any fever or chills. Patient had cardiac workup done and that has been negative. CT of the chest showed the possible thickening of the esophagus. Patient does admit that she had an EGD done at [facility] 4 years ago and was found to have ulcer. Denies any use of NSAIDs denies any alcohol use. Past Med Surg Social Fam HX - Past Medical History Medical history: arthritis, hyperlipidemia, hypertension Psychiatric history: depression - Past Surgical History Surgical History: cholecystectomy, hysterectomy, other - Social History Smoking Status: Never smoker Smokeless Tobacco Status: No Alcohol use: none Drug use: none - Family History Mother Living Status: Hx Family Cardiac Disorders: Yes (NH) Father Living Status: Hx Family Cancer: Yes (Throat) Review of Systems: GI: as per [facility] GENERAL: denies fever, has some chills EYES: denies yellow discoloration ENT: denies pain with swallowing or difficulty swallowing CARDIO: denies chest pain, palpitations RESP: No Shortness of breath with exertion : denies change in color of urine NEURO: denies any weakness HEME: Denies any bruising MS: denies joint pain, joint swelling or back pain. DERM: denies rash or itching PSYCH: Denies history of anxiety or depression - Constitutional Vitals: Temp Pulse Resp BP Pulse Ox 98.3 F 69 16 138/63 98 10/27/17 08:05 10/27/17 08:15 10/27/17 08:15 10/27/17 08:15 10/27/17 08:15 Exam: CONSTITUTIONAL:~alert, no acute distress.~HEAD:~normocephalic.~EYES:~no jaundice.~NECK:~no obvious swelling.~HEART:~regular rate and rhythm, no murmurs. ~LUNGS:~bilateral good air entry.~ABDOMEN:~non distended, soft, epigastric tanderness, no masses pulpable, no organomegaly.~RECTAL EXAM:~Deferred.~ EXTREMITIES:~no clubbing, cyanosis or edema.~SKIN:~no stigmata of chronic liver disease.~NEUROLOGIC:~no obvious focal defect.~~~~ Results - Labs CBC & Chem 7: 10/25/17 20:08 10/27/17 06:20 Labs: Last Result Calcium 9.3 mg/dL (8.6-10.3) 10/27/17 06:20 Troponin I < 0.03 ng/mL (< 0.04) 10/26/17 07:38 Triglycerides 253 mg/dL (< 150) H 10/26/17 01:49 Entire Visit Hgb 14.7 g/dL (11.5-15.4) 10/25/17 20:08 Hct 42.8 % (35.3-44.9) 10/25/17 20:08 PT 11.4 Seconds (9.4-12.1) 10/25/17 20:08 - ABG ABG results: PT/INR, D-dimer PT 11.4 Seconds (9.4-12.1) 10/25/17 20:08 Consult Discharge Plan - Plan Referrals: Merrick Esquivel MD [Primary Care Provider] -
[2017-10-27] MEDS: Gabapentin 300 MG CAPSULE PO SCH (09:01)
[2017-10-27] MEDS: Multivit/Ca/Min/Fe/FA 1 TAB TABLET PO SCH (09:01)
[2017-10-27] MEDS: Ascorbic Acid 500 MG TABLET PO SCH (09:01)
[2017-10-27] MEDS: Aspirin Enteric Coated 81 MG Tablet PO SCH (09:01)
[2017-10-27] MEDS: Sucralfate 1 GM TABLET PO SCH ×2 (09:01→12:34)
--- NOTE | 2017-10-27 10:14 | Event Note ---
Date of Encounter: 10/27/17 Time of Encounter: 10:00 EGD showed severe gastritis. Recommendation: No NSAIDs. DailY PPI. Carafate tablet 3 times a day both for 3 months
[2017-10-27 10:52] VITALS: BP 107/66
--- NOTE | 2017-10-27 14:32 | Discharge Summary ---
<Doroteo Clayton - Last Filed: 10/27/17 16:04> - NOTES TO OUTPATIENT PROVIDER Notes to Outpatient Provider: Per gastroenterology, recommended patient continue Carafate and PPI for 3 month duration Orders not resulted at time of discharge: Pending orders 10/27/17 08:18 Surgical Pathology [PTH] Routine Date of Encounter: 10/27/17 Time of Encounter: 10:05 - Discharge Diagnosis (1) Esophagitis Priority: Primary Status: Acute (2) Chest pain Priority: Secondary Status: Acute Qualifiers: Chest pain type: unspecified Qualified Code(s): R07.9 - Chest pain, unspecified (3) Hypokalemia Priority: Secondary Status: Acute (4) Hypothyroidism Priority: Secondary Status: Chronic Qualifiers: Hypothyroidism type: unspecified Qualified Code(s): E03.9 - Hypothyroidism , unspecified (5) HTN (hypertension) Priority: Secondary Status: Chronic Qualifiers: Hypertension type: essential hypertension Qualified Code(s): I10 - Essential (primary) hypertension (6) HLD (hyperlipidemia) Priority: Secondary Status: Chronic Qualifiers: Hyperlipidemia type: unspecified Qualified Code(s): E78.5 - Hyperlipidemia , unspecified (7) DVT prophylaxis Priority: Secondary Status: Acute (8) Gastritis Priority: Primary Status: Acute Qualifiers: Gastritis type: superficial Chronicity: acute Gastritis bleeding: without bleeding Qualified Code(s): K29.00 - Acute gastritis without bleeding Hospital course: Ms. Dye is a 72 year old female with a past medical history of arthritis, hyperlipidemia, hypertension, peptic ulcers presented to the emergency room with the chief complaint of chest and epigastric pain. Pain was located at the center of the chest and radiates to the back. She states the pain is constant with waxing and waning describes it as a tearing sensation. Did have associated nausea without vomiting. Vital signs on presentation to emergency room significant for mildly elevated blood pressure 153/88, lab results essentially unremarkable. Troponin was ordered and negative. Chest x-ray shows mild left basilar atelectasis versus scarring. CTA of chest and abdomen was ordered to rule out aortic dissection which was negative. It did show diffuse circumferential esophageal wall thickening and stranding compatible with esophagitis as well as hepatic steatosis, 3.1 cm adrenal nodule and diverticulosis. Patient was admitted to medicine service for further evaluation and management of substernal chest pain which is likely secondary to esophagitis. During course of hospital stay, patient did gradually improve. She was started on Carafate 3 times daily and consult to gastroenterology was placed. EGD was performed on 10/27/17 which showed evidence of severe chronic gastritis without any evidence of ulcers. GI did recommends avoiding the use of NSAIDs, daily PPI , Carafate 3 times daily for 3 months. Patient did state with the addition of Carafate that her symptoms have resolved and she is back to baseline. She is eager to return home. Vital signs remained at baseline levels, labs were significant for hypokalemia which was replaced. Patient will be discharged home in stable medical condition and instructed to follow-up with primary care physician for further management of her chronic medical conditions. She will be given prescriptions for Carafate. Discharge discussed with: patient, family - Time Spent with Patient Total time spent providing and/or coordinating discharge services: - Discharge Medications Prescriptions: Sucralfate [Carafate] 1 gm PO QIDAC #28 tablet Home Medications: Ascorbic Acid [Vitamin C] 1,000 mg PO DAILY 09/05/16 [History] Biotin 1 mg PO DAILY 09/05/16 [History] Diphenoxylate/Atropine [Lomotil 2.5 mg/0.025 mg] 1 each PO QID PRN 09/05/16 [ History] Gabapentin [Neurontin] 300 mg PO BID 09/05/16 [History] HYDROcodone/Acet 10/325 mg [[place] 10-325 mg] 1 tab PO TID PRN 09/05/16 [History] L. Acidophilus/Pectin, [place] [Acidophilus Capsule] 1 each PO DAILY 09/05/16 [ History] Levothyroxine [Synthroid] 75 mcg PO 0630 #30 tablet 09/05/16 [Rx] Mv-Mn/FA/Vit K1/Lycop/Lut/Zeax [Ocuvite Eye + Multi Tablet] 1 each PO DAILY [History] Potassium Chloride [K-Tab ER] 30 meq PO DAILY 09/05/16 [History] Trazodone HCl 100 mg PO HS 09/05/16 [History] Vitamin A 10,000 unit PO DAILY 09/05/16 [History] Vitamin E 1,000 unit PO DAILY 09/05/16 [History] hydroCHLOROthiazide [Hydrochlorothiazide] 25 mg PO BID 09/05/16 [History] Aspirin Enteric Coated [Aspirin EC] 81 mg PO DAILY 04/06/17 [History] Cyclobenzaprine [Flexeril] 10 mg PO BID PRN 04/06/17 [History] PARoxetine HCl [Paroxetine HCl] 40 mg PO DAILY 04/06/17 [History] SUMAtriptan Succinate [Imitrex] 100 mg PO Q2H PRN MDD 200 mg 04/06/17 [History] Ranitidine HCl [Acid [employer] Loan [employer]or] 150 mg PO BID 10/25/17 [History] Simvastatin [Zocor] 40 mg PO HS 10/25/17 [History] Sucralfate [Carafate] 1 gm PO QIDAC #28 tablet 10/27/17 [Rx] Allergies/Adverse Reactions: 3 Allergy/AdvReac Type Severity Reaction Status Date / Time ampicillin Allergy Hives Verified 04/06/17 21:11 Sulfa (Sulfonamide AdvReac Gastrointestinal Verified 04/06/17 21:11 Antibiotics) Upset Date of admission: 10/25/17 23:26 Primary care physician: Merrick Esquivel MD Consults: 10/26/17 10:55 Consult to Gastroenterology [CONS] Routine Consulting Provider: Gastroenterology Cathy Reason for Consult: h/o esophageal and gastric ulcers Call Completed: Yes Discharging clinician: Doroteo Clayton Anticipated date of discharge: 10/27/17 - Constitutional Vitals: Temp Pulse Resp BP Pulse Ox 98.4 F 84 16 107/66 94 10/27/17 10:47 10/27/17 10:47 10/27/17 10:47 10/27/17 10:47 10/27/17 10:47 Exam: Gen.: Vitals noted. No acute distress. AAOx3 HEENT: PERRL/EOMI, oropharynx clear, Normocephalic, atraumatic, MMM Cardiac: RRR, no murmur, +S1/S2 Pulmonary: CTA bilaterally, no wheezes, rales or rhonchi, equal chest expansion Abdomen: soft, minimal tenderness to palpation epigastric region, BS noted, no guarding, no distention MSK: ROM intact, no joint swelling noted Extremities: no BLE edema, nontender calf, no cyanosis or clubbing Neuro: A&Ox3, moves all extremities, no focal deficits Psych: Appropriate mood and behavior - Patient Status Disposition: Home, Self-Care Condition: Good Functional capacity at discharge: independent ambulation Overall status at discharge: patient is back to baseline - Discharge Instructions Instructions: Diet for Ulcers and Gastritis (GEN) Follow Up With: Merrick Esquivel MD [Primary Care Provider] - (Web request in for patients follow up appoitment, please call patient ) Additional Instructions: Take all medication as prescribed and follow up with your PCP within 1 week. Please return to the emergency room if your symptoms return. - Diet and Activity Activity: increase activity as tolerated, resume usual activities as tolerated Diet: advance to your usual diet <Masood Roy - Last Filed: 10/27/17 17:04> Orders not resulted at time of discharge: Pending orders 10/27/17 08:18 Surgical Pathology [PTH] Routine Date of Encounter: 10/27/17 - Discharge Diagnosis (1) Gastritis Status: Acute Qualifiers: Gastritis type: superficial Chronicity: acute Gastritis bleeding: without bleeding Qualified Code(s): K29.00 - Acute gastritis without bleeding (2) Chest pain Status: Resolved Qualifiers: Chest pain type: unspecified Qualified Code(s): R07.9 - Chest pain, unspecified (3) Hypokalemia Status: Resolved (4) Hypothyroidism Status: Chronic Qualifiers: Hypothyroidism type: acquired Qualified Code(s): E03.9 - Hypothyroidism, unspecified (5) DVT prophylaxis Status: Acute (6) HTN (hypertension) Status: Chronic Qualifiers: Hypertension type: essential hypertension Qualified Code(s): I10 - Essential (primary) hypertension (7) HLD (hyperlipidemia) Status: Chronic Qualifiers: Hyperlipidemia type: mixed hyperlipidemia Qualified Code(s): E78.2 - Mixed hyperlipidemia (8) Esophagitis Status: Ruled-out Hospital course: Ms. Dye is a 72 year old female - Time Spent with Patient Total time spent providing and/or coordinating discharge services: 28min Date of admission: 10/25/17 23:26 Primary care physician: Merrick Esquivel MD Consults: 10/26/17 10:55 Consult to Gastroenterology [CONS] Routine Consulting Provider: Gastroenterology Maynard Reason for Consult: h/o esophageal and gastric ulcers Call Completed: Yes - Constitutional Vitals: Temp Pulse Resp BP Pulse Ox 98.4 F 84 16 107/66 94 10/27/17 10:47 10/27/17 10:47 10/27/17 10:47 10/27/17 10:47 10/27/17 10:47 - Attending Attestation I examined this patient and my medical decision-making was reviewed with the Resident Physician on 10/27/17. I agree with the documented findings, disposition and treatment plan as described except to the extent set forth below. Ms Dye has been in observation for abdominal pain. She has been found to have severe gastritis. She is feeling somewhat better today. She is tolerating a diet. She is currently afebrile and ready for discharge home. Exam alert Comfortable Mucus membranes dry Heart not tachy No wheeze Plan D/C home today PPI BID and Carafate Follow up with PCP.
== END 2017-10-27 15:11 | disposition home or self-care (01) ==
LOC: 3ANU 19:41 → EMEROO 19:41 → SUATTDRO 23:26 → 3ANU 10-26 00:10
PROVIDERS: ADMIT Internal Medicine; ATTEND Internal Medicine
PROC: ENDOEBX (2017-10-27 11:00)

== ENCOUNTER 2018-08-15 15:55 | Inpatient (IN) ==
[~2018-08-15 15:55] MED LIST: Aminoglycoside Consult 1 EACH MC ONE
--- NOTE | 2018-08-15 16:42 | Emergency Department Note ---
Disposition Clinical Impression: Hypoxia Pneumonia Qualifiers: Pneumonia type: due to unspecified organism Laterality: right Lung location: lower lobe of lung Qualified Code(s): J18.1 - Lobar pneumonia, unspecified org anism Nausea and vomiting Qualifiers: Vomiting type: unspecified Vomiting Intractability: non-intractable Qualified Code(s): R11.2 - Nausea with vomiting, unspecified Disposition: Admitted As Inpatient Condition: Fair Time of Disposition: 18:47 General Adult HPI - General Chief complaint: ED General Medical Stated complaint: Sick/Flu symtpoms/fever/Vomiting Time Seen by Provider: 08/15/18 16:21 Source: patient Mode of arrival: ambulatory Limitations: no limitations Nursing Notes Reviewed: Yes Vital Signs Reviewed: Yes - History of Present Illness HPI Narrative: Patient is a 73-year-old female with past medical history of hypertension, hyperlipidemia. She also recently was diagnosed with the flu about 3 weeks ago. She was given Tamiflu 3 weeks ago and finished the course. She states that she has had continued symptoms of the flu with fever, myalgias, cough. Due to continued and worsening symptoms, she went to her primary care physician yesterday. She stated that yesterday she had basic blood work, a flu swab that she reports was positive and was started on Tamiflu for second round. Today, she developed vomiting and diarrhea. She has only been able to hold down Jell-O today. She is concern for dehydration, dyspnea. She denies any other chest pain, abdominal pain, dysuria, hematuria. She does not report a history of any pulmonary disease, denies any COPD, does not wear any oxygen at home. Pain Scale: 6 - Related Data Home Medications Medication Instructions Recorded Confirmed Ascorbic Acid [Vitamin C] 1,000 mg PO DAILY 09/05/16 01/21/18 Biotin 1 mg PO DAILY 09/05/16 01/21/18 Diphenoxylate/Atropine [Lomotil 1 each PO QID PRN 09/05/16 01/21/18 2.5 mg/0.025 mg] Gabapentin [Neurontin] 300 mg PO BID 09/05/16 01/21/18 HYDROcodone/Acet 10/325 mg [[place] 1 tab PO TID PRN 09/05/16 01/21/18 10-325 mg] L. Acidophilus/Pectin, [place] 1 each PO DAILY 09/05/16 01/21/18 [Acidophilus Capsule] Mv-Min/FA/Vit K/Lycop/Lut/Zeax 1 each PO DAILY 09/05/16 01/21/18 [Ocuvite Eye Plus Multi Tablet] Potassium Chloride [K-Tab ER] 30 meq PO DAILY 09/05/16 01/21/18 Trazodone HCl 100 mg PO HS 09/05/16 01/21/18 hydroCHLOROthiazide 25 mg PO BID 09/05/16 01/21/18 [Hydrochlorothiazide] Aspirin Enteric Coated [Aspirin EC] 81 mg PO DAILY 04/06/17 01/21/18 Cyclobenzaprine [Flexeril] 10 mg PO BID PRN 04/06/17 01/21/18 SUMAtriptan Succinate [Imitrex] 100 mg PO Q2H PRN MDD 200 mg 04/06/17 01/21/18 Ranitidine HCl [Acid Assistant Director Of Financial Aid] 150 mg PO BID 10/25/17 01/21/18 Atorvastatin Calcium [Lipitor] 80 mg PO DAILY 01/21/18 01/21/18 Previous Rx's Medication Instructions Recorded Levothyroxine [Synthroid] 75 mcg PO 0630 #30 tablet 09/05/16 Allergies Allergy/AdvReac Type Severity Reaction Status Date / Time ampicillin Allergy Hives Verified 04/06/17 21:11 Sulfa (Sulfonamide AdvReac Gastrointestinal Verified 04/06/17 21:11 Antibiotics) Upset All systems ED: reviewed and negative except as stated. Constitutional: Reports: fever Cardiovascular: Denies: chest pain Respiratory: Reports: cough, dyspnea, sputum production Gastrointestinal: Reports: nausea, vomiting, diarrhea. Denies: abdominal pain Genitourinary: Denies: urgency, dysuria, frequency, hematuria, discharge Integumentary: Denies: rash Neurological: Denies: headache, weakness, numbness, paresthesias Past Medical History - Past Medical History Attestation: Yes The following information was validated with the patient. Source: patient Medical history: Reports: arthritis, fibromyalgia, hyperlipidemia, hypertension, migraine, SVT Surgical history: Reports: cholecystectomy, hysterectomy, thyroidectomy, other Psychiatric history: Reports: depression - Social History Smoking Status: Never smoker Smokeless Tobacco Status: No Alcohol use: Reports: none Drug use: Reports: none Physical Exam - General Limitations: no limitations General appearance: alert, other (listless) - Head Head exam: atraumatic, normocephalic, normal inspection - Eye Eye exam: Present: normal appearance, PERRL, EOMI - ENT ENT exam: other (dry lips and tongue) - Neck Neck exam: Present: normal inspection, full ROM, trachea midline - Chest Chest inspection: Present: normal inspection, symmetric chest wall rise - Respiratory Respiratory exam: Present: other (diminished throughout but no wheezing or rho nchi) - Cardiovascular Cardiovascular exam: Present: regular rate, normal rhythm, normal heart sounds - Abdominal Exam Abdominal exam: Present: soft, tenderness (LLQ pain, moderate). Absent: distention, guarding, rebound, rigidity - Neurological Exam Neurological exam: Present: alert, oriented X3 - Psychiatric Psychiatric exam: Present: normal affect, normal mood - Skin Skin exam: Present: warm, dry, intact, normal color Course Course Narrative: Patient oxygen saturation was dropping down to 88-99% on room air. She has diminished lung sounds throughout but no significant wheezing or rhonchi. She has dry mucous membranes and dry lips. The rest of physical exam was fairly benign. We will perform x-ray of the chest, repeat blood work. We will put the patient on 2 L nasal cannula oxygen, give fluids. We will also obtain CT abdomen and pelvis for further assessment of nausea and vomiting and diarrhea. She did have some mild left lower quadrant pain on exam. Diarrhea and vomiting may be secondary to Tamiflu. We will give the patient Zofran for nausea control. 18:42 patient has an elevated white blood cell count. Chest x-ray shows right lower lobe pneumonia. CT abdomen and pelvis negative for any acute process. There are some incidental left adrenal nodules. Patient is requiring 2 L nasal cannula oxygen to keep her saturation above 88%. Troponin negative. EKG shows no acute ST elevation or depression. We started vancomycin, meropenem (due to penicillin allergy), azithromycin. Concern for possible posterior fluid or pneumonia such as MRSA, this is why broader coverage was initiated with vanc. Chest X-Ray 08/15/18 16:44 IMPRESSION: Atelectatic changes and likely persistent infiltrate in the right lower lobe. D/ / 08/15/2018 17:13:22 Karrie Breen MD / alice Interpreting Provider: Karrie Breen MD Abdomen/Pelvis CT 08/15/18 17:12 IMPRESSION: 1. Diffuse fatty infiltration of the liver without focal disease. 2. Left adrenal nodules, one calcified measuring 1.9 cm and one noncalcified measuring 1.3 cm. 3. Diverticulosis but no acute diverticulitis. D/ / 08/15/2018 18:23:28 Karrie Breen MD / jorge Interpreting Provider: Karrie Breen MD Vital Signs Temperature 98.5 F 08/15/18 16:12 Pulse Rate 87 08/15/18 16:12 Respiratory Rate 18 08/15/18 16:12 Blood Pressure 119/74 08/15/18 16:12 O2 Sat by Pulse Oximetry 92 08/15/18 16:12 Temperature 98.5 F 08/15/18 16:12 Pulse Rate 87 08/15/18 16:12 Respiratory Rate 19 08/15/18 17:13 Blood Pressure 119/74 08/15/18 16:12 O2 Sat by Pulse Oximetry 93 08/15/18 17:13 Oxygen Delivery Oxygen Delivery Room Air Medical Decision Making - MDM Narrative Medical decision making narrative: Patient oxygen saturation was dropping down to 88-99% on room air. She has diminished lung sounds throughout but no significant wheezing or rhonchi. She has dry mucous membranes and dry lips. The rest of physical exam was fairly benign. We will perform x-ray of the chest, repeat blood work. We will put the patient on 2 L nasal cannula oxygen, give fluids. We will also obtain CT abdomen and pelvis for further assessment of nausea and vomiting and diarrhea. She did have some mild left lower quadrant pain on exam. Diarrhea and vomiting may be secondary to Tamiflu. We will give the patient Zofran for nausea control. 18:42 patient has an elevated white blood cell count. Chest x-ray shows right lower lobe pneumonia. CT abdomen and pelvis negative for any acute process. There are some incidental left adrenal nodules. Patient is requiring 2 L nasal cannula oxygen to keep her saturation above 88%. Troponin negative. EKG shows no acute ST elevation or depression. We started vancomycin, meropenem (due to penicillin allergy), azithromycin. Concern for possible posterior fluid or pneumonia such as MRSA, this is why broader coverage was initiated with vanc. - Medical Records Medical records reviewed: Yes I reviewed the patient's medical records. - Lab Data Lab results reviewed: Yes I reviewed the patient's lab results. Result diagrams: 08/15/18 17:09 08/15/18 17:09 Lab Results 08/15/18 08/15/18 08/15/18 Range/Units 17:09 17:09 17:41 WBC 18.2 H (4.3-11.1) K/mcL RBC 4.77 (3.82-4.97) M/mcL Hgb 13.8 (11.5-15.4) g/dL Hct 40.5 (35.3-44.9) % MCV 84.9 (83.0-100.0) fL MCH 28.9 (28.0-33.3) pg MCHC 34.1 (31.6-35.5) g/dL RDW 12.5 (11.5-14.5) % Plt Count 276 (140-400) K/mcL MPV 8.0 L (9.4-12.4) fL Immature Gran % 0.4 (0-4) % Seg Neutrophils % 82.8 % Lymphocytes % 10.1 % Monocytes % 6.3 % Eosinophils % 0.1 % Basophils % 0.3 % Neutrophils # 15.1 H (1.6-8.9) K/mcL Lymphocytes # 1.8 (0.6-4.6) K/mcL Monocytes # 1.2 (0.0-1.3) K/mcL Eosinophils # 0.0 (0.0-0.6) K/mcL Basophils # 0.1 (0.0-0.2) K/mcL Sodium 131 L (136-145) mEq/L Potassium 3.2 L (3.5-5.1) mEq/L Chloride 92 L (98-107) mEq/L Carbon Dioxide 28 (23-29) mEq/L BUN 12 (8-23) mg/dL Creatinine 0.67 (0.60-1.20) mg/dL Est GFR ( Amer) > 60 (> 60) Est GFR (Non-Af Amer) > 60 (> 60) BUN/Creatinine Ratio 18 (6-26) Glucose 121 H (70-105) mg/dL Calculated Osmolality 273 L (280-300) Lactic Acid 1.2 (0.5-2.2) mmol/L Calcium 9.6 (8.6-10.3) mg/dL Troponin I < 0.03 (< 0.04) ng/mL - Radiology Data Radiology results reviewed: Yes I reviewed the patient's radiology results. Chest X-Ray 08/15/18 16:44 IMPRESSION: Atelectatic changes and likely persistent infiltrate in the right lower lobe. D/ / 08/15/2018 17:13:22 Karrie Breen MD / bcarter Interpreting Provider: Karrie Breen MD Abdomen/Pelvis CT 08/15/18 17:12 IMPRESSION: 1. Diffuse fatty infiltration of the liver without focal disease. 2. Left adrenal nodules, one calcified measuring 1.9 cm and one noncalcified measuring 1.3 cm. 3. Diverticulosis but no acute diverticulitis. D/ / 08/15/2018 18:23:28 Karrie Breen MD / [email or web address] Interpreting Provider: Karrie Breen MD - EKG Data EKG #1 EKG attestation: Yes I reviewed and interpreted this EKG. EKG results narrative: 08/15/2018 at 17:25. Rate 82. MN 159. QRS 103. QTC 462. Mild left axis deviation. No acute ST elevation or depression. S.B.A.R. - S.B.A.R. Situation: Demographics, MOA Background: Presenting Complaint, Relevant PMH, Meds, & Allergies Assessment: Vital Signs, Course and respsone to treatment, Exam Concerns, Patient/Family Expectation, Pertinant Lab Results Recommendation: Barrier(s) to disposition, Recommendation based on pending studies, treatments, or consults S.B.A.R. Report Given to: Dr. Kang
[2018-08-15] MEDS ORDERED: Ipratropium/Albuterol Neb 3 ML IH ONE (16:50)
[2018-08-15] MEDS ORDERED: predniSONE 20 MG TABLET PO ONE (16:50)
[2018-08-15] MEDS ORDERED: Ondansetron 4 MG/2 ML VIAL IVP ONE (17:12)
[2018-08-15] MEDS ORDERED: 0.9 % Sodium Chloride 1,000 ML IVC ONE (17:12)
[2018-08-15 17:34] LABS: Basophils # 0.1 K/mcL (0.0-0.2); Basophils % 0.3 %; Eosinophils % 0.1 %; Hematocrit 40.5 % (35.3-44.9); Hemoglobin 13.8 g/dL (11.5-15.4); Immature Granulocytes % 0.4 % (0-4); Lymphocytes # 1.8 K/mcL (0.6-4.6); Lymphocytes % 10.1 %; Mean Corpuscular HGB Conc 34.1 g/dL (31.6-35.5); Mean Corpuscular Hemoglobin 28.9 pg (28.0-33.3); Mean Corpuscular Volume 84.9 fL (83.0-100.0); Monocytes # 1.2 K/mcL (0.0-1.3); Monocytes % 6.3 %; Neutrophils # 15.1 K/mcL (1.6-8.9); Platelet Count 276 K/mcL (140-400); Red Blood Count 4.77 M/mcL (3.82-4.97); Red Cell Distribution Width 12.5 % (11.5-14.5); Segmented Neutrophils % 82.8 %
[2018-08-15 17:56] LABS: BUN/Creatinine Ratio 18 (6-26); Blood Urea Nitrogen 12 mg/dL (8-23); Calcium 9.6 mg/dL (8.6-10.3); Carbon Dioxide 28 mEq/L (23-29); Chloride 92 mEq/L (98-107); Glucose 121 mg/dL (70-105); Osmolality,Calculated 273 (280-300); Potassium 3.2 mEq/L (3.5-5.1); Sodium 131 mEq/L (136-145); eGFR For Non-African Americans > 60 (> 60)
[2018-08-15 17:57] LABS: Troponin I < 0.03 ng/mL (< 0.04)
[2018-08-15] MEDS ORDERED: Azithromycin 500 MG in D5% in Water 250 ML IVPB ONE (18:22)
--- NOTE | 2018-08-15 18:36 | Emergency Department Note ---
Disposition Clinical Impression: Pneumonia, Nausea and vomiting, Hypoxia Disposition: Admitted As Inpatient Condition: Fair General Adult HPI - General Chief complaint: ED General Medical Stated complaint: Sick/Flu symtpoms/fever/Vomiting Time Seen by Provider: 08/15/18 16:21 Source: patient Mode of arrival: ambulatory Limitations: no limitations - History of Present Illness Pain Scale: 6 - Related Data Home Medications Medication Instructions Recorded Confirmed Ascorbic Acid [Vitamin C] 1,000 mg PO DAILY 09/05/16 01/21/18 Biotin 1 mg PO DAILY 09/05/16 01/21/18 Diphenoxylate/Atropine [Lomotil 1 each PO QID PRN 09/05/16 01/21/18 2.5 mg/0.025 mg] Gabapentin [Neurontin] 300 mg PO BID 09/05/16 01/21/18 HYDROcodone/Acet 10/325 mg [[place] 1 tab PO TID PRN 09/05/16 01/21/18 10-325 mg] L. Acidophilus/Pectin, [place] 1 each PO DAILY 09/05/16 01/21/18 [Acidophilus Capsule] Mv-Min/FA/Vit K/Lycop/Lut/Zeax 1 each PO DAILY 09/05/16 01/21/18 [Ocuvite Eye Plus Multi Tablet] Potassium Chloride [K-Tab ER] 30 meq PO DAILY 09/05/16 01/21/18 Trazodone HCl 100 mg PO HS 09/05/16 01/21/18 hydroCHLOROthiazide 25 mg PO BID 09/05/16 01/21/18 [Hydrochlorothiazide] Aspirin Enteric Coated [Aspirin EC] 81 mg PO DAILY 04/06/17 01/21/18 Cyclobenzaprine [Flexeril] 10 mg PO BID PRN 04/06/17 01/21/18 SUMAtriptan Succinate [Imitrex] 100 mg PO Q2H PRN MDD 200 mg 04/06/17 01/21/18 Ranitidine HCl [Acid Varitype Operator] 150 mg PO BID 10/25/17 01/21/18 Atorvastatin Calcium [Lipitor] 80 mg PO DAILY 01/21/18 01/21/18 Previous Rx's Medication Instructions Recorded Levothyroxine [Synthroid] 75 mcg PO 0630 #30 tablet 09/05/16 Allergies Allergy/AdvReac Type Severity Reaction Status Date / Time ampicillin Allergy Hives Verified 04/06/17 21:11 Sulfa (Sulfonamide AdvReac Gastrointestinal Verified 04/06/17 21:11 Antibiotics) Upset Constitutional: Reports: fever Cardiovascular: Denies: chest pain Respiratory: Reports: cough, dyspnea, sputum production Gastrointestinal: Reports: nausea, vomiting, diarrhea. Denies: abdominal pain Genitourinary: Denies: urgency, dysuria, frequency, hematuria, discharge Integumentary: Denies: rash Neurological: Denies: headache, weakness, numbness, paresthesias Past Medical History - Past Medical History Medical history: Reports: arthritis, fibromyalgia, hyperlipidemia, hypertension, migraine, SVT Surgical history: Reports: cholecystectomy, hysterectomy, thyroidectomy, other Psychiatric history: Reports: depression - Social History Smoking Status: Never smoker Smokeless Tobacco Status: No Alcohol use: Reports: none Drug use: Reports: none Physical Exam - General Limitations: no limitations General appearance: alert, other (listless) Course Vital Signs Temperature 98.5 F 08/15/18 16:12 Pulse Rate 87 08/15/18 16:12 Respiratory Rate 18 08/15/18 16:12 Blood Pressure 119/74 08/15/18 16:12 O2 Sat by Pulse Oximetry 92 08/15/18 16:12 Temperature 98.5 F 08/15/18 16:12 Pulse Rate 87 08/15/18 16:12 Respiratory Rate 19 08/15/18 17:13 Blood Pressure 119/74 08/15/18 16:12 O2 Sat by Pulse Oximetry 93 08/15/18 17:13 Oxygen Delivery Oxygen Delivery Room Air Medical Decision Making - Lab Data Result diagrams: 08/15/18 17:09 08/15/18 17:09 Lab Results 08/15/18 08/15/18 08/15/18 Range/Units 17:09 17:09 17:41 WBC 18.2 H (4.3-11.1) K/mcL RBC 4.77 (3.82-4.97) M/mcL Hgb 13.8 (11.5-15.4) g/dL Hct 40.5 (35.3-44.9) % MCV 84.9 (83.0-100.0) fL MCH 28.9 (28.0-33.3) pg MCHC 34.1 (31.6-35.5) g/dL RDW 12.5 (11.5-14.5) % Plt Count 276 (140-400) K/mcL MPV 8.0 L (9.4-12.4) fL Immature Gran % 0.4 (0-4) % Seg Neutrophils % 82.8 % Lymphocytes % 10.1 % Monocytes % 6.3 % Eosinophils % 0.1 % Basophils % 0.3 % Neutrophils # 15.1 H (1.6-8.9) K/mcL Lymphocytes # 1.8 (0.6-4.6) K/mcL Monocytes # 1.2 (0.0-1.3) K/mcL Eosinophils # 0.0 (0.0-0.6) K/mcL Basophils # 0.1 (0.0-0.2) K/mcL Sodium 131 L (136-145) mEq/L Potassium 3.2 L (3.5-5.1) mEq/L Chloride 92 L (98-107) mEq/L Carbon Dioxide 28 (23-29) mEq/L BUN 12 (8-23) mg/dL Creatinine 0.67 (0.60-1.20) mg/dL Est GFR ( Amer) > 60 (> 60) Est GFR (Non-Af Amer) > 60 (> 60) BUN/Creatinine Ratio 18 (6-26) Glucose 121 H (70-105) mg/dL Calculated Osmolality 273 L (280-300) Lactic Acid 1.2 (0.5-2.2) mmol/L Calcium 9.6 (8.6-10.3) mg/dL Troponin I < 0.03 (< 0.04) ng/mL Attestation Statement - Attestation Attestation: I examined this patient and my medical decision-making was reviewed with the Resident Physician. I agree with the documented findings, disposition and treatment plan as described except to the extent set forth below. Patient presents to the emergency department with a chief complaint of "the flu." Patient was recently diagnosed with the flu. States she got better but now she feels worse. Saw her PCP yesterday and was started on Tamiflu again. Vomiting and diarrhea. Joint aches. On exam she is in no acute distress. Mild x-ray Tory wheezing. Lung sounds diminished. Abdomen soft with some mild diffuse tenderness. Plan. Septic workup. CT abdomen pelvis. X-ray shows a right lobe infiltrate. Starting IV antibiotic and will admit. Chest X-Ray 08/15/18 16:44 IMPRESSION: Atelectatic changes and likely persistent infiltrate in the right lower lobe. D/ / 08/15/2018 17:13:22 Karrie Breen MD / [email or web address] Interpreting Provider: Karrie Breen MD Abdomen/Pelvis CT 08/15/18 17:12 IMPRESSION: 1. Diffuse fatty infiltration of the liver without focal disease. 2. Left adrenal nodules, one calcified measuring 1.9 cm and one noncalcified measuring 1.3 cm. 3. Diverticulosis but no acute diverticulitis. D/ / 08/15/2018 18:23:28 Karrie Breen MD / jorge Interpreting Provider: Karrie Breen MD
[2018-08-15] MEDS ORDERED: Albuterol 2.5 MG/3 ML NEBULIZER IH PRN (21:55)
[2018-08-15] MEDS ORDERED: Naloxone 0.4 MG/ML INJ IVP PRN (21:55)
[2018-08-15] MEDS ORDERED: Ondansetron 4 MG/2 ML VIAL IVP PRN (21:55)
[2018-08-15] MEDS ORDERED: Acetaminophen 325 MG TABLET PO PRN (21:55)
--- NOTE | 2018-08-15 22:07 | Internal Med History&Physical ---
Date of Encounter: 08/15/18 Time of Encounter: 20:05 Internal Medicine - H&P: HPI Chief complaint: cough; fever; SOB Admitted From: Emergency Dept Plans for Post Hospital Care: Home History of present illness: Ms. Dye is a 73 year old female who presents with complaints of fever, chills, productive cough, shortness breath, wheezing, and pleurisy. She recently had influenza a couple weeks ago and initially recovered from that. She saw her PCP earlier today who thought she still might have had influenza. She was sent to ER for concerns of possible persistent influenza versus pneumonia. Workup in ER revealed patient to have pneumonia and hypoxemia. She also had some wheezing and responded to some aerosols and steroids. She was subsequently admitted to the hospitalist service. Upon my assessment of the patient in the ER, patient appears be acutely ill but nontoxic. She looks dehydrated, mildly short of breath, and "wiped out". She confirms above symptoms. She is complaining of productive cough, pleuritic chest pain with coughing, shortness of breath, and some wheezing. She has no history of COPD and has never smoked in her life. She has had some nausea and vomiting. She had very little oral intake due to the GI symptoms. She denies any other ill contacts at home or with family and friends. Past Med Surg Social Fam HX - Past Medical History Attestation: Yes The following information was validated with the patient. Source: patient, old records reviewed Medical history: arthritis, fibromyalgia, hyperlipidemia, hypertension, migraine, SVT Additional medical history: thyroid nodule. thyroid goiter. diverticulitis. peptic ulcer disease. Lumbar DDD. arachnoid cyst. chronic back pain. SVT Psychiatric history: depression - Past Surgical History Surgical History: cholecystectomy, hysterectomy, thyroidectomy, other Additional surgical history: 3 back sx, partial thyroidectomy, sinus surgery, tonsilectomy. spinal cord stimulator - Social History Smoking Status: Never smoker Smokeless Tobacco Status: No Alcohol use: none Drug use: none Current living situation: Home, With Family Activity Level: Independent ambulation Recent Out of Country Travel Within the Last 8 Weeks: No - Family History Mother Living Status: Hx Family Cardiac Disorders: Yes ([place]) Father Living Status: Hx Family Cancer: Yes (Throat) Internal Medicine - H&P: Meds Ascorbic Acid [Vitamin C] 1,000 mg PO DAILY 09/05/16 [History] Biotin 1 mg PO DAILY 09/05/16 [History] Diphenoxylate/Atropine [Lomotil 2.5 mg/0.025 mg] 1 each PO QID PRN 09/05/16 [History] Gabapentin [Neurontin] 300 mg PO BID 09/05/16 [History] HYDROcodone/Acet 10/325 mg [[place] 10-325 mg] 1 tab PO TID PRN 09/05/16 [History] L. Acidophilus/Pectin, Keith [Acidophilus Capsule] 1 each PO DAILY 09/05/16 [History] Levothyroxine [Synthroid] 75 mcg PO 0630 #30 tablet 09/05/16 [Rx] Mv-Min/FA/Vit K/Lycop/Lut/Zeax [Ocuvite Eye Plus Multi Tablet] 1 each PO DAILY 09/05/16 [History] Potassium Chloride [K-Tab ER] 30 meq PO DAILY 09/05/16 [History] Trazodone HCl 100 mg PO HS 09/05/16 [History] hydroCHLOROthiazide [Hydrochlorothiazide] 25 mg PO BID 09/05/16 [History] Aspirin Enteric Coated [Aspirin EC] 81 mg PO DAILY 04/06/17 [History] Cyclobenzaprine [Flexeril] 10 mg PO BID PRN 04/06/17 [History] SUMAtriptan Succinate [Imitrex] 100 mg PO Q2H PRN MDD 200 mg 04/06/17 [History] Ranitidine HCl [Acid Principal Data Architect] 150 mg PO BID 10/25/17 [History] Atorvastatin Calcium [Lipitor] 80 mg PO DAILY 01/21/18 [History] Allergy/AdvReac Type Severity Reaction Status Date / Time ampicillin Allergy Hives Verified 04/06/17 21:11 Sulfa (Sulfonamide AdvReac Gastrointestinal Verified 04/06/17 21:11 Antibiotics) Upset - Constitutional Constitutional: chills, fever(s), malaise, no night sweats - EENT Eyes: no blurry vision, no change in vision Ears: no ear pain, no tinnitus Nose, mouth and throat: nasal congestion, no sore throat - Cardiovascular Cardiovascular ROS IM: chest pain (pleuritic), dyspnea, no lightheadedness, no o rthopnea, no paroxysmal nocturnal dyspnea, no syncope - Respiratory Respiratory: cough, dyspnea, chest congestion, excessive phlegm production, change in phlegm color, pain with cough, no hemoptysis - Gastrointestinal Gastrointestinal: nausea, vomiting, no abdominal pain, no diarrhea, no hematemesis, no hematochezia, no melena - Genitourinary Genitourinary: no dysuria, no flank pain, no hematuria - Musculoskeletal Musculoskeletal ROS IM: myalgias, no arthralgias, no back pain - Integumentary Integumentary IM: no rash, no jaundice - Neurological Neurological ROS: no disequilibrium, no dizziness, no focal weakness, no frequent falls, no headache(s) - Psychiatric Psychiatric: no anxiety, no depression - Endocrine Endocrine IM: no polydipsia, no polyuria - Allergic/Immunologic Allergic/Immunologic: GI upset with certain foods - Constitutional Vitals: Temp Pulse Resp BP Pulse Ox 98.5 F 85 21 112/73 97 08/15/18 21:00 08/15/18 21:00 08/15/18 21:00 08/15/18 21:00 08/15/18 21:00 General appearance: Present: cooperative, mild distress, A&O X 3, pleasant, answers questions appropriately Exam: acutely ill, non-toxic, moderately dehydrated - Head Head exam: Present: atraumatic, normal inspection - Eye Eye exam: Present: EOMI, PERRL. Absent: scleral icterus Pupils: Present: normal accommodation - ENT ENT exam: Present: mucous membranes dry, normal exam, normal oropharynx - Neck Neck exam general surgery: Present: full ROM, supple. Absent: tenderness, nuchal rigidity, thyromegaly - Respiratory Respiratory exam: Present: rales (right side, mostly in the base), respiratory distress, wheezes, tachypnea. Absent: chest wall tenderness Additional comments: + splinting with deep inspiration - Cardiovascular Cardiovascular exam: Present: distant heart sounds, RRR, +S1, +S2. Absent: diastolic murmur, systolic murmur - GI/Abdominal GI/Abdominal exam: Present: normal bowel sounds, soft. Absent: guarding, hepatomegaly, mass, rebound, splenomegaly, tenderness - Extremities Exam Extremities exam: Present: full ROM, warm, radial pulses palpable and symm etrical. Absent: calf tenderness, joint swelling, pedal edema, tenderness - Back Exam Back exam: Present: normal inspection. Absent: CVA tenderness (L), CVA te nderness (R) - Neurological Exam Neurological exam: Present: alert, CN II-XII intact, oriented X3, no focal deficits, strengths equal and symetr throughout - Psychiatric Psychiatric exam: Present: normal affect, normal mood - Skin Skin exam: Present: dry, intact, warm Internal Med - H&P Results - Labs CBC & Chem 7: 08/15/18 17:09 08/15/18 17:09 Labs: Short CBC 08/15/18 Range/Units 17:09 WBC 18.2 H (4.3-11.1) K/mcL Hgb 13.8 (11.5-15.4) g/dL Hct 40.5 (35.3-44.9) % Plt Count 276 (140-400) K/mcL Neutrophils # 15.1 H (1.6-8.9) K/mcL BMP 08/15/18 17:09 Sodium 131 L Potassium 3.2 L Chloride 92 L Carbon Dioxide 28 BUN 12 Creatinine 0.67 Glucose 121 H Calcium 9.6 Cardiac Enzymes 08/15/18 Range/Units 17:09 Troponin I < 0.03 (< 0.04) ng/mL - EKG Data -: EKG Interpreted by Myself - EKG Data Prior EKG available for review: no EKG comments: 08/15/18 22:12 NSR; no acute ST changes - Impressions ITS Impressions Chest X-Ray 08/15/18 16:44 IMPRESSION: Atelectatic changes and likely persistent infiltrate in the right lower lobe. D/ / 08/15/2018 17:13:22 Karrie Breen MD / [email or web address] Interpreting Provider: Karrie Breen MD Abdomen/Pelvis CT 08/15/18 17:12 IMPRESSION: 1. Diffuse fatty infiltration of the liver without focal disease. 2. Left adrenal nodules, one calcified measuring 1.9 cm and one noncalcified measuring 1.3 cm. 3. Diverticulosis but no acute diverticulitis. D/ / 08/15/2018 18:23:28 Karrie Breen MD / [email or web address] Interpreting Provider: Karrie Breen MD - Diagnostic Studies Chest x-ray Status: image reviewed by me (RLL infiltrate) - Assessment and plan (1) RLL pneumonia Current Visit: Yes Status: Acute Assessment and plan: 1. Will treat with Rocephin and Zithromax. 2. Blood cultures obtained in ER. 3. Will order Sputum culture. 4. Flu antigen testing done yesterday was negative as obtained by Dr. Esquivel. 5. Supportive measures including oxygen, aerosols, steroids. 6. Patient received Vancomycin in ER. Will continue for now and monitor clinically. May de-escalate if sputum culture remains negative and patient improves clinically. Qualifiers: Pneumonia type: due to unspecified organism Qualified Code(s): J18.1 - Lobar pneumonia, unspecified organism (2) Acute hypoxemic respiratory failure Current Visit: Yes Status: Acute Assessment and plan: 1. Will schedule Duoneb aerosols and add Albuterol aerosols PRN. 2. Oxygen as needed for support. 3. Monitor clinically and advance supportive measures as needed. 4. Prednisone for wheezing/RAD; minimal wheezing now on exam. (3) Dehydration Current Visit: Yes Status: Acute Assessment and plan: 1. IVF hydration. 2. Hold HCTZ. 3. Monitor oral intake, I/O and wean IVF as hydration status improves. (4) Nausea and vomiting Current Visit: Yes Status: Acute Assessment and plan: 1. CT abdomen negative. 2. IVF hydration and nausea control. Qualifiers: Vomiting type: unspecified Vomiting Intractability: non-intractable Qualified Code(s): R11.2 - Nausea with vomiting, unspecified (5) DVT prophylaxis Current Visit: Yes Status: Acute Assessment and plan: 1. Heparin SQ.
[2018-08-15] MEDS: Ipratropium/Albuterol Neb 3 ML IH SCH (22:10)
[2018-08-15] MEDS: 0.9 % Sodium Chloride w KCl 20 MEQ/1,000 ML MLS IVC SCH (22:58)
[2018-08-16] MEDS: traZODone 50 MG TABLET PO SCH ×2 (00:42→20:32)
[2018-08-16] MEDS: Ipratropium/Albuterol Neb 3 ML IH SCH ×2 (04:26→10:34)
[2018-08-16] MEDS: *HR* Heparin 5,000 UNIT/ML VIAL SQ SCH ×2 (06:03→17:53)
[2018-08-16] MEDS: 0.9 % Sodium Chloride w KCl 20 MEQ/1,000 ML MLS IVC SCH (07:26)
[2018-08-16] MEDS ORDERED: cefTRIAXone 2,000 MG in Water for inj. (sterile) 20 ML 20 ML IVP SCH (09:00)
[2018-08-16] MEDS ORDERED: SUMAtriptan succinate 50 MG TABLET PO PRN (09:36)
[2018-08-16] MEDS ORDERED: Diphenoxylate/Atropine 1 TAB TABLET PO PRN (09:36)
[2018-08-16] MEDS: predniSONE 20 MG TABLET PO SCH (09:36)
--- NOTE | 2018-08-16 11:23 | Internal Med Progress Note ---
Hospitalist Progress Note - Encounter Date of Encounter: 08/16/18 Time of Encounter: 10:20 - Subjective Interval History: Patient is feeling somewhat better today. Shortness of breath is improving. No fevers or chills reported overnight. No chest pain. Does continue to have cough. - Exam Vitals: Temp Pulse Resp BP Pulse Ox 97.9 F 77 16 123/71 96 08/16/18 10:52 08/16/18 10:52 08/16/18 10:52 08/16/18 10:52 08/16/18 10:52 Exam: General: Patient is alert, mild distress, oriented x 3 Respiratory: Mild wheezing. Good inspiratory . Cardiovascular: Regular rate and rhythm. s1 and s2 normal No clicks, rubs, gallops, or murmurs. No pedal edema Abdomen: Abdomen is soft, nontender. Bowel sounds are present Musculoskeletal: Spontaneously moving all extremities Skin: warm, dry, intact. Neuro: Alert oriented x 3 normal cranial nerves, no focal deficits - Assessment and Plan (1) RLL pneumonia Current Visit: Yes Status: Acute Assessment and Plan: No organism identified yet. We will check for MRSA screen. If negative, stop vancomycin. Continue ceftriaxone and azithromycin. Awaiting labs from today. (2) DVT prophylaxis Current Visit: Yes Status: Acute Assessment and Plan: Continue subcutaneous heparin (3) Nausea and vomiting Current Visit: Yes Status: Acute Assessment and Plan: Improved. Continue supportive care. CT of the abdomen and pelvis does not show any acute process. (4) Acute hypoxemic respiratory failure Current Visit: Yes Status: Acute Assessment and Plan: continue O2 supplementation. Due pneumonia. Wean FiO2 as tolerated (5) Dehydration Current Visit: Yes Status: Acute Assessment and Plan: Continue hydration. Await labs from today. Clinically, patient is improving. - Time Spent with Patient Total time spent is greater than 50% in coordination of care (as documented) at patient's floor/unit and/or counseling patient: Internal Medicine: Result - Labs CBC & Chem 7: 08/15/18 17:09 08/15/18 17:09 Labs: Short CBC 08/15/18 Range/Units 17:09 WBC 18.2 H (4.3-11.1) K/mcL Hgb 13.8 (11.5-15.4) g/dL Hct 40.5 (35.3-44.9) % Plt Count 276 (140-400) K/mcL Neutrophils # 15.1 H (1.6-8.9) K/mcL BMP 08/15/18 17:09 Sodium 131 L Potassium 3.2 L Chloride 92 L Carbon Dioxide 28 BUN 12 Creatinine 0.67 Glucose 121 H Calcium 9.6 Cardiac Enzymes 08/15/18 Range/Units 17:09 Troponin I < 0.03 (< 0.04) ng/mL - Impressions Impressions Chest X-Ray 08/15/18 16:44 IMPRESSION: Atelectatic changes and likely persistent infiltrate in the right lower lobe. D/ / 08/15/2018 17:13:22 Karrie Breen MD / [email or web address] Interpreting Provider: Karrie Breen MD Abdomen/Pelvis CT 08/15/18 17:12 IMPRESSION: 1. Diffuse fatty infiltration of the liver without focal disease. 2. Left adrenal nodules, one calcified measuring 1.9 cm and one noncalcified measuring 1.3 cm. 3. Diverticulosis but no acute diverticulitis. D/ / 08/15/2018 18:23:28 Karrie Breen MD / [email or web address] Interpreting Provider: Karrie Breen MD Consult Discharge Plan - Plan Referrals: Merrick Esquivel MD [Primary Care Provider] - (1) RLL pneumonia Qualifiers: Pneumonia type: due to unspecified organism Qualified Code(s): J18.1 - Lobar pneumonia, unspecified organism (3) Nausea and vomiting Qualifiers: Vomiting type: unspecified Vomiting Intractability: non-intractable Qualified Code(s): R11.2 - Nausea with vomiting, unspecified
[2018-08-16] MEDS ORDERED: Meropenem 1,000 MG in 0.9 % Sodium Chloride Mini Bag 100 ML IVPB ONE (18:23)
[2018-08-16] MEDS: Famotidine 20 MG TABLET PO SCH (20:32)
[2018-08-16] MEDS: Gabapentin 300 MG CAPSULE PO SCH (20:32)
[2018-08-16] MEDS: *HR* HYDROcodone/Acet 10/325 mg TABLET PO PRN (20:32)
[2018-08-16] MEDS ORDERED: Azithromycin 500 MG in D5% in Water 250 ML IVPB SCH (21:00)
[2018-08-17 05:03] LABS: Basophils % 0.3 %; Eosinophils # 0.1 K/mcL (0.0-0.6); Eosinophils % 0.4 %; Hematocrit 37.9 % (35.3-44.9); Hemoglobin 12.3 g/dL (11.5-15.4); Immature Granulocytes % 0.4 % (0-4); Lymphocytes # 2.7 K/mcL (0.6-4.6); Lymphocytes % 17.5 %; Mean Corpuscular HGB Conc 32.5 g/dL (31.6-35.5); Mean Corpuscular Hemoglobin 28.6 pg (28.0-33.3); Mean Corpuscular Volume 88.1 fL (83.0-100.0); Mean Platelet Volume 8.5 fL (9.4-12.4); Monocytes # 0.8 K/mcL (0.0-1.3); Neutrophils # 11.9 K/mcL (1.6-8.9); Platelet Count 267 K/mcL (140-400); Red Cell Distribution Width 12.8 % (11.5-14.5); Segmented Neutrophils % 76.4 %
[2018-08-17 05:24] LABS: BUN/Creatinine Ratio 14 (6-26); Blood Urea Nitrogen 8 mg/dL (8-23); Calcium 9.2 mg/dL (8.6-10.3); Carbon Dioxide 28 mEq/L (23-29); Chloride 102 mEq/L (98-107); Glucose 110 mg/dL (70-105); Osmolality,Calculated 283 (280-300); Potassium 3.5 mEq/L (3.5-5.1); Sodium 137 mEq/L (136-145); eGFR For Non-African Americans > 60 (> 60)
[2018-08-17] MEDS: *HR* HYDROcodone/Acet 10/325 mg TABLET PO PRN (05:41)
[2018-08-17] MEDS: *HR* Heparin 5,000 UNIT/ML VIAL SQ SCH (05:41)
[2018-08-17] MEDS ORDERED: (Biotin [Biotin] 1 MG) PO SCH (09:00)
[2018-08-17] MEDS ORDERED: cefTRIAXone 1,000 MG in Water for inj. (sterile) 20 ML 10 ML IVP SCH (09:00)
[2018-08-17] MEDS ORDERED: Lactobacillus 1 EACH CAP.SPRINK PO SCH (09:00)
[2018-08-17] MEDS: Famotidine 20 MG TABLET PO SCH (09:10)
[2018-08-17] MEDS: Gabapentin 300 MG CAPSULE PO SCH (09:10)
[2018-08-17] MEDS: predniSONE 20 MG TABLET PO SCH (09:11)
[2018-08-17 09:47] LABS: Alanine Aminotransferase 46 Units/L (7-52); Albumin 3.9 g/dL (3.5-5.7); Albumin/Globulin Ratio 1.3 (1.1-2.2); Alkaline Phosphatase 77 Units/L (34-104); Aspartate Amino Transferase 36 Units/L (13-39); Bilirubin,Total 0.4 mg/dL (0.3-1.0); Globulin 2.9 g/dL (2.4-3.5); Total Protein 6.8 g/dL (6.4-8.9)
[2018-08-17 11:17] VITALS: BP 131/59
--- NOTE | 2018-08-17 11:57 | Discharge Summary ---
- NOTES TO OUTPATIENT PROVIDER Notes to Outpatient Provider: Patient was hospitalized with an episode of right lower lobe pneumonia following a bout of influenza recently. She was started on IV antibiotics. Initially she required O2 supplementation and breathing treatments. She is now doing much better and is back on room air. Her WBC count is trending down. She feels much better and is stable to be discharged home. She will be discharged on a course of oral antibiotics and a tapering course of steroids. She will follow up with her primary care provider for further management of her chronic medical conditions. Orders not resulted at time of discharge: Pending orders 08/15/18 17:09 Culture,Blood [BC] Stat 08/15/18 21:55 Culture,Sputum with Gram Stain [RM] Stat 08/16/18 04:00 Comprehensive Metabolic Panel AM 0400 Magnesium AM 0400 08/16/18 06:00 ECG 12 lead ECG [ECG] AM 0600 Date of Encounter: 08/17/18 Time of Encounter: 11:55 - Discharge Diagnosis (1) RLL pneumonia Priority: Primary Status: Acute Qualifiers: Pneumonia type: due to unspecified organism Qualified Code(s): J18.1 - Lobar pneumonia, unspecified organism (2) DVT prophylaxis Priority: Secondary Status: Acute (3) Nausea and vomiting Priority: Secondary Status: Resolved Qualifiers: Vomiting type: unspecified Vomiting Intractability: non-intractable Qualified Code(s): R11.2 - Nausea with vomiting, unspecified (4) Acute hypoxemic respiratory failure Priority: Secondary Status: Resolved (5) Dehydration Priority: Secondary Status: Resolved Hospital course: Ms. Dye is a 73 year old female Patient was hospitalized with an episode of right lower lobe pneumonia following a bout of influenza recently. She was started on IV antibiotics. Initially she required O2 supplementation and breathing treatments. She is now doing much better and is back on room air. Her WBC count is trending down. She feels much better and is stable to be discharged home. She will be discharged on a course of oral antibiotics and a tapering course of steroids. She will follow up with her primary care provider for further management of her chronic medical conditions. Discharge discussed with: patient, family, nurse - Time Spent with Patient Total time spent providing and/or coordinating discharge services: Less than 30 minutes (25 min) - Discharge Medications Prescriptions: New predniSONE [PredniSONE] 10 mg PO DAILY #12 tablet Azithromycin [Azithromycin 6-Tab Pack] 500 mg PO DAILY #6 tab Cefdinir [Omnicef] 300 mg PO BID #14 capsule Albuterol Sulfate [Albuterol Inhaler] 2 puff IH Q4HR PRN #1 hfa.aer.ad PRN Reason: Shortness Of Breath Continue Potassium Chloride [K-Tab ER] 30 meq PO DAILY hydroCHLOROthiazide [Hydrochlorothiazide] 50 mg PO QPM HYDROcodone/Acet 10/325 mg [[place] 10-325 mg] 1 tab PO Q8H PRN PRN Reason: Pain L. Acidophilus/Pectin, Ronan [Acidophilus Capsule] 1 cap PO DAILY Biotin 1 mg PO DAILY Ascorbic Acid [Vitamin C] 1,000 mg PO DAILY Mv-Min/FA/Vit K/Lycop/Lut/Zeax [Ocuvite Eye Plus Multi Tablet] 1 tab PO DAILY Levothyroxine [Synthroid] 75 mcg PO 0630 #30 tablet SUMAtriptan Succinate [Imitrex] 100 mg PO Q2H PRN MDD 200 mg PRN Reason: Migraine Headache Cyclobenzaprine [Flexeril] 20 mg PO HS PRN PRN Reason: Muscle Spasm Ranitidine HCl [Acid Street Light Servicer] 150 mg PO BID Acyclovir [Zovirax] 200 mg PO DAILY PRN PRN Reason: Cold Sores Magic Mouthwash [Magic Mouthwash BLM] 5 - 10 ml PO Q4H PRN PRN Reason: MOUTH SORES PARoxetine HCl [Paroxetine HCl] 40 mg PO QAM Simvastatin [Zocor] 40 mg PO DAILY Sucralfate [Carafate] 1 gm PO DAILY Trazodone HCl 100 mg PO HS Triamcinolone Acetonide 1 appl TP PRN PRN PRN Reason: "ITCHING ON NECK" Loperamide HCl [Anti-Diarrheal] 2 mg PO QID PRN PRN Reason: Diarrhea Discontinued Oseltamivir [Tamiflu] 75 mg PO DAILY Home Medications: Ascorbic Acid [Vitamin C] 1,000 mg PO DAILY 09/05/16 [History] Biotin 1 mg PO DAILY 09/05/16 [History] HYDROcodone/Acet 10/325 mg [[place] 10-325 mg] 1 tab PO Q8H PRN 09/05/16 [History] L. Acidophilus/Pectin, Ronan [Acidophilus Capsule] 1 cap PO DAILY 09/05/16 [History] Levothyroxine [Synthroid] 75 mcg PO 0630 #30 tablet 09/05/16 [Rx] Mv-Min/FA/Vit K/Lycop/Lut/Zeax [Ocuvite Eye Plus Multi Tablet] 1 tab PO DAILY 09/05/16 [History] Potassium Chloride [K-Tab ER] 30 meq PO DAILY 09/05/16 [History] hydroCHLOROthiazide [Hydrochlorothiazide] 50 mg PO QPM 09/05/16 [History] Cyclobenzaprine [Flexeril] 20 mg PO HS PRN 04/06/17 [History] SUMAtriptan Succinate [Imitrex] 100 mg PO Q2H PRN MDD 200 mg 04/06/17 [History] Ranitidine HCl [Acid Street Light Servicer] 150 mg PO BID 10/25/17 [History] Acyclovir [Zovirax] 200 mg PO DAILY PRN 08/16/18 [History] Loperamide HCl [Anti-Diarrheal] 2 mg PO QID PRN 08/16/18 [History] Magic Mouthwash [Magic Mouthwash BLM] 5 - 10 ml PO Q4H PRN 08/16/18 [History] PARoxetine HCl [Paroxetine HCl] 40 mg PO QAM 08/16/18 [History] Simvastatin [Zocor] 40 mg PO DAILY 08/16/18 [History] Sucralfate [Carafate] 1 gm PO DAILY 08/16/18 [History] Trazodone HCl 100 mg PO HS 08/16/18 [History] Triamcinolone Acetonide 1 appl TP PRN PRN 08/16/18 [History] Albuterol Sulfate [Albuterol Inhaler] 2 puff IH Q4HR PRN #1 hfa.aer.ad 08/17/18 [Rx] Azithromycin [Azithromycin 6-Tab Pack] 500 mg PO DAILY #6 tab 08/17/18 [Rx] Cefdinir [Omnicef] 300 mg PO BID #14 capsule 08/17/18 [Rx] predniSONE [PredniSONE] 10 mg PO DAILY #12 tablet 08/17/18 [Rx] Allergies/Adverse Reactions: Allergy/AdvReac Type Severity Reaction Status Date / Time ampicillin Allergy Hives Verified 08/16/18 20:59 Sulfa (Sulfonamide AdvReac "ATTACKS Verified 08/16/18 20:59 Antibiotics) MY BOWELS" Date of admission: 08/15/18 21:55 Primary care physician: Merrick Esquivel MD Discharging clinician: Son Galan Anticipated date of discharge: 08/17/18 - Constitutional Vitals: Temp Pulse Resp BP Pulse Ox 98.3 F 78 18 131/59 93 08/17/18 11:15 08/17/18 11:15 08/17/18 11:15 08/17/18 11:15 08/17/18 04:00 General appearance: Present: cooperative, A&O X 3, pleasant, no acute distress, answers questions appropriately Exam: . - Respiratory Respiratory exam: Present: rales (Right lower lobe). Absent: accessory muscle use, rhonchi - Cardiovascular Cardiovascular exam: Present: RRR, +S1, +S2. Absent: diastolic murmur, gallop, rubs, systolic murmur - Extremities Exam Extremities exam: Present: warm, radial pulses palpable and symmetrical. Absent: calf tenderness, cyanotic, pedal edema - Patient Status Disposition: Home, Self-Care Condition: Good Functional capacity at discharge: independent ambulation Overall status at discharge: patient is progressing back to baseline - Discharge Instructions Instructions: Pneumonia (DC), Acute Respiratory Distress Syndrome (DC) Follow Up With: Merrick Esquivel MD [Primary Care Provider] - (in 1-2 weeks) - Diet and Activity Activity: increase activity as tolerated Diet: low fat, low cholesterol, low salt diet
--- NOTE | 2018-08-17 20:28 | Electrocardiograph Report ---
[place] [id number] Test Date: 2018-08-15 Pat Name: Margaret Dye Department: [id number] Room: [id number] Gender: F Hand Fur Cleaner: : 1945 Requested By: Erick Etienne Order Number: [id number] Reading MD: Jodie Lynn Measurements Intervals [place] Rate: 82 P: 50 RI: 159 QRS: -14 QRSD: 103 T: 10 QT: 395 QTc: 462 Interpretive Statements Sinus rhythm Abnormal R-wave progression, late transition Probable left ventricular hypertrophy Electronically Signed On 08-17-2018 20:27:22 EST by Jodie Lynn
== END 2018-08-17 12:58 | disposition home or self-care (01) | DRG 193 ==
LOC: 2NENU 15:55 → EMEROOARM 15:55 → 2NENU 21:12
PROVIDERS: ADMIT Internal Medicine; ATTEND Internal Medicine